=== PATIENT | male | born 1940 | race Caucasian/White ===

== ENCOUNTER 2020-01-06 13:39 | Outpatient (REF) | payer MEDICARE, OTHER, SELFPAY ==
[2020-01-06 16:31] LABS: Alanine Aminotransferase 17 U/L (0-40); Albumin Level 4.3 g/dL (3.5-5.0); Alkaline Phosphatase 115 U/L (39-117); Anion Gap 12 (12-20); Aspartate Amino Transferase 17 U/L (5-37); Bilirubin Total 1.1 mg/dL (0.0-1.0); Blood Urea Nitrogen 27 mg/dL (9-16); Calcium 9.1 mg/dL (8.4-10.2); Carbon Dioxide 27 mmol/L (22-29); Chloride 101 mmol/L (96-108); Cholesterol 104 mg/dL; Estimated Glomerular Filt Rate > 60; Glucose Random 102 mg/dL (60-115); HDL Cholesterol 34 mg/dL; LDL Cholesterol Calculated 53 mg/dl; Magnesium 2.1 mg/dL (1.6-2.6); Potassium 4.3 mmol/l (3.3-5.1); Sodium 136 mmol/L (135-145); Total Protein 7.2 g/dL (6.5-8.0); Triglycerides 89 mg/dL
== END 2020-01-06 13:40 | disposition home or self-care (01) ==
LOC: HO.LAB 13:39
PROVIDERS: PCP Family Medicine; Referring Provider Family Medicine; Visit Provider Nurse Practitioner Family
DX: I47.1 Supraventricular tachycardia (principal); I25.10 Atherosclerotic heart disease of native coronary artery without angina pectoris; I44.7 Left bundle-branch block, unspecified; Z95.5 Presence of coronary angioplasty implant and graft; Z45.02 Encounter for adjustment and management of automatic implantable cardiac defibrillator
CPT/HCPCS: 80053; 80061; 83735; 99212

== ENCOUNTER → 2020-01-08 07:22 | Outpatient (REF) | payer MEDICARE, OTHER, SELFPAY ==
--- NOTE | 2020-01-08 07:46 | CA_ITS ---
Transthoracic Echocardiogram Patient (Last, First, Middle): Angelo Maurer, Gender: Male Date of : 1940 Age: 79 Procedure Date: 01/08/2020 Procedure Type: Transthoracic Echocardiogram Location: OP Height: 177.8 cm Weight: 73.48 kg BSA: 1.91 m2 Heart Rate: bpm BP: 120 / 63 mmHg Booth Usher: LENCHO Referring MD: Maya Walker PEST MANAGEMENT SUPERVISOREthel Symptoms: I25.10 - Atherosclerotic heart disease of [place] coronary artery without angina pectoris Study Quality: Good ECG Rhythm: Sinus Conclusions: - The left ventricular systolic function is mildly decreased. The visually estimated ejection fraction is between 40-45%. The calculated ejection fraction is 42% by biplane method. - No obvious valvular pathology seen on this study. Findings Left Ventricle Normal left ventricular cavity size. There is mildly increased left ventricular wall thickness. The left ventricular systolic function is mildly decreased. The visually estimated ejection fraction is between 40-45%. The calculated ejection fraction is 42% by biplane method. E/E prime ratio is <8, consistent with normal filling pressures. Evidence suggests grade I (mild) diastolic dysfunction. Right Ventricle Normal right ventricular cavity size and systolic function. There is a pacemaker wire seen in the right ventricle. Atria The left atrium is normal in size. The right atrium is normal in size. Aortic Valve There is a normal trileaflet aortic valve. There is mild calcification of the aortic valve. There is no aortic valve stenosis. There is no aortic valve regurgitation. Mitral Valve The mitral valve appears normal. There is trace mitral valve regurgitation. There is no mitral valve stenosis. Pulmonic Valve The pulmonic valve was not well visualized. Tricuspid Valve Normal tricuspid valve structure. There is trace tricuspid valve regurgitation. The pulmonary artery systolic pressure is normal. Great Vessels The aortic annulus, sinuses of valsalva, and asc aorta are normal in size. Venous The inferior vena cava is normal in size and collapses greater than 50% with inspiration. Pericardium/Pleural There is no evidence of pericardial effusion. Prior Study Comparison No significant change compared to prior study dated: 02/05/2019. Recommendations, Care & Conclusions No obvious valvular pathology seen on this study. Measurements 2D Linear Measurements IVSd: 1.41 0.6-0.9/0.6-1.0 cm LVIDd: 4.92 3.9-5.3/4.2-5.9 cm LVIDd Index: 2.58 2.4-3.2/2.2-3.1 cm/m2 LVIDs: 4.14 2.0-3.6 cm LVPWd: 1.14 0.7-1.1 cm Ao Root: 3.00 2.1-3.5 cm LA Diam: 3.40 2.7-3.8/3.0-4.0 cm LAIDs Index: 1.78 1.5-2.3 cm/m2 LV Mass: 309.65 67-162/88-224 g LV Mass Index: 162.12 43-95/49-115 g/m2 LVOT Diam: 2.10 3.0+(-)1.3 cm 2D Systolic Function EF 4C: 55.00 >55% EF 2C: 30.00 >55% EF BiP: 42.20 >55% Mitral Valve MV Pk E: 0.34 MV PK A: 0.68 MV Decel Time: 333.00 E/A: 0.50 E'Lateral: 5.51 E'Medial: 7.16 E/E' Med: 4.80 E/E' Lat: 6.20 PHT: 97.00 MVA PHT: 2.27 Decel [place]: 1.04 Aortic Valve AoV Pk Bertrand: 1.17 AoV Pk Grad: 5.00 LVOT LVOT Pk Bertrand: 0.61 LVOT Mn Bertrand: 0.44 LVOT VTI: 0.12 LVOT Pk Grad: 2.00 LVOT Mn Grad: 1.00 LVOT Diam: 2.10 LVOT Area: 3.46 Diastolic Function MV Pk E: 0.34 MV Pk A: 0.68 E/A: 0.50 E'Medial: 7.16 E/E' Med: 4.80 E' Laterial: 5.51 E/E' Lat: 6.20 Tricuspid Valve TR Pk Bertrand: 1.90 TR Pk Grad: 14.00 RA Press: 3.00 RVSP: 17.00 Great Vessels Aorta Ao Root-2D: 3.00 2.0-3.7 cm Ao Asc: 3.50 2.1-3.4 cm Updated in Other Vendor System with Status of Final Mike Joseph MD electronically signed on 01/10/2020 3:26:08 PM with status of Final
== END ==
LOC: HO.CARD 07:22
PROVIDERS: Visit Provider Nurse Practitioner Family
DX: I25.10 Atherosclerotic heart disease of native coronary artery without angina pectoris (principal)
CPT/HCPCS: 93306

== ENCOUNTER 2020-01-22 13:39 | Outpatient (REF) | payer MEDICARE, OTHER, SELFPAY ==
[2020-01-22 15:09] LABS: Digoxin < 0.3 ng/mL (0.8-2.0)
== END 2020-01-22 13:40 | disposition home or self-care (01) ==
LOC: HO.LAB 13:39
PROVIDERS: Visit Provider Nurse Practitioner Family
DX: I47.1 Supraventricular tachycardia (principal)
CPT/HCPCS: 80162

== ENCOUNTER → 2020-02-03 14:01 | Outpatient (BNVA) | payer MEDICARE, OTHER, SELFPAY | PROVIDERS: Visit Provider Internal Medicine Cardiovascular Disease | DX: Z45.02 Encounter for adjustment and management of automatic implantable cardiac defibrillator (principal); I47.1 Supraventricular tachycardia; I42.9 Cardiomyopathy, unspecified; I25.10 Atherosclerotic heart disease of native coronary artery without angina pectoris | CPT/HCPCS: 99212 ==

== ENCOUNTER → 2020-05-12 12:40 | Outpatient (BNVA) | payer MEDICARE, OTHER, SELFPAY | PROVIDERS: Visit Provider Internal Medicine Cardiovascular Disease | DX: Z45.02 Encounter for adjustment and management of automatic implantable cardiac defibrillator (principal); I42.9 Cardiomyopathy, unspecified; I25.10 Atherosclerotic heart disease of native coronary artery without angina pectoris; Z95.810 Presence of automatic (implantable) cardiac defibrillator | CPT/HCPCS: 99212 ==

== ENCOUNTER → 2020-11-05 08:52 | Outpatient (BNVA) | payer MEDICARE, OTHER, SELFPAY | PROVIDERS: Visit Provider Internal Medicine Cardiovascular Disease | DX: Z45.02 Encounter for adjustment and management of automatic implantable cardiac defibrillator (principal); I42.9 Cardiomyopathy, unspecified; I25.10 Atherosclerotic heart disease of native coronary artery without angina pectoris | CPT/HCPCS: 99212 ==

== ENCOUNTER 2020-11-09 10:00 | Outpatient (REF) | payer MEDICARE, OTHER, SELFPAY ==
[2020-11-09 10:41] LABS: Hematocrit 40.2 % (42-52); Hemoglobin 12.8 g/dl (14.0-18.0); Mean Corpuscular HGB Conc 31.8 g/dl (31.0-36.0); Mean Corpuscular Hemoglobin 32.7 pg (27.0-33.0); Mean Corpuscular Volume 102.6 fL (80-98); Mean Platelet Volume 9.8 fL (9.4-12.4); Platelet Count 211 X10*3/uL (160-400); Red Blood Count 3.92 X10*6/uL (4.60-5.80); Red Cell Distribution Width 14.6 % (11.0-16.0); White Blood Count 11.5 X10*3/uL (4.8-10.8)
[2020-11-09 10:48] LABS: INTERNATIONAL NORM RATIO 1.1 (0.9-1.1); Prothrombin Time 12.7 SEC (9.9-13.0)
[2020-11-09 11:28] LABS: Anion Gap 12 (12-20); Blood Urea Nitrogen 23 mg/dL (9-16); Calcium 8.9 mg/dL (8.4-10.2); Carbon Dioxide 28 mmol/L (22-29); Chloride 108 mmol/L (96-108); Cholesterol 99 mg/dL; Estimated Glomerular Filt Rate > 60; Glucose Random 109 mg/dL (60-115); HDL Cholesterol 30 mg/dL; LDL Cholesterol Calculated 47 mg/dl; Potassium 4.5 mmol/L (3.3-5.1); Sodium 143 mmol/L (135-145); Triglycerides 111 mg/dL
[2020-11-09 14:26] LABS: Digoxin 0.3 ng/mL (0.8-2.0)
== END 2020-11-09 10:01 | disposition home or self-care (01) ==
LOC: HO.LAB 10:00
PROVIDERS: PCP Family Medicine; Visit Provider Internal Medicine Cardiovascular Disease
DX: I25.10 Atherosclerotic heart disease of native coronary artery without angina pectoris (principal); I48.20 Chronic atrial fibrillation, unspecified
CPT/HCPCS: 36415; 80048; 80061; 80162; 85027; 85610

== ENCOUNTER 2020-12-08 13:06 | Day surgery (SDC) | payer MEDICARE, OTHER, SELFPAY ==
[2020-12-02 13:16] VITALS: BMI 23.6
--- NOTE | 2020-12-07 10:22 | P.CONAN_ITS ---
Documented by User: Isabel Boyd NP 12/07/20 10:24 HPI - Anesthesia Eval Consult details Narrative: 80yo M for Pacemaker Generator Change Prednisone daily for PMR Digoxin therapy PMFSH Active Problems Active Problems: All Active Problems (Updated 12/02/20 @ 13:16 by Magaly Palomares RN) SVT (supraventricular tachycardia) (Acute) LBBB (left bundle branch block) (Acute) Biventricular ICD (implantable cardioverter-defibrillator) in place (Acute) Cardiomyopathy (Acute) CAD (coronary artery disease) (Acute) Past Medical History Medical History (Updated 12/02/20 @ 13:16 by Magaly Palomares RN) Arthritis Biventricular ICD (implantable cardioverter-defibrillator) in place CAD (coronary artery disease) Cardiomyopathy COVID-19 vaccine series completed Elevated cholesterol Gout LBBB (left bundle branch block) Polymyalgia rheumatica Family History Family History Father CVD (cardiovascular disease) Mother No problems noted. Surgical History Surgical History (Updated 12/02/20 @ 12:50 by Magaly Palomares RN) H/O colonoscopy Stented coronary artery Social History Social History Are you a primary senior care specialist to a significant other at home: No Do you presently have visiting nurse or other home services: No Patient Tobacco Use Status: Never used Tobacco Use of substances other than those prescribed or required for medical reasons: No Have you been hit, kicked, punched, or otherwise hurt by someone within the past year? If so, by whom?: No Are you DNR?: No Advance Directives Information Provided: Yes (will bring copy of HCP form DOS) Advance Directives on File: No Recently lost weight without trying: No Eating poorly because of decreased appetite: No Nutrition Risks: Surgical patient >75years Poor oral hygiene: No Meds Allergies Allergy/AdvReac Type Severity Reaction Status Date / Time bee pollen [BEE STINGS] Allergy Severe Anaphylaxis Verified 12/08/20 13:14 Home Medications Medication Instructions Recorded Confirmed Last Taken Type allopurinol 100 mg tablet 200 mg PO DAILY 01/06/20 12/02/20 Unknown History aspirin 81 mg tablet,delayed 81 mg PO DAILY 01/06/20 12/08/2021 10:00 History release (Adult Low Dose Aspirin) prednisone 1 mg tablet 2 mg PO DAILY tab 05/12/20 12/08/20 12/08/20 06:00 History 1 mg indomethacin 25 mg capsule 25 mg PO TID 12/02/20 12/02/20 Unknown History Exam Exam Date and Time: December 07, 2020 1022 Height,Weight and Vital Signs: Height 5 ft 10 in Weight 74.6 kg Pertinent Lab Results Pertinent Lab Results: Laboratory Tests 11/09/20 11/09/20 10:18 10:18 WBC 11.5 H Hgb 12.8 L Hct 40.2 L Plt Count 211 Sodium 143 Potassium 4.5 Chloride 108 Carbon Dioxide 28 BUN 23 H Creatinine 1.01 Laboratory Tests 11/09/20 11/09/20 10:18 10:18 PT 12.7 INR 1.1 Digoxin 0.3 L Narrative Narrative: Cardiac Device Check 10/2020 Details: Biventricular [place] ICD in place.? Programmed in DDDR at 60 beats per minute.? Battery has reached ZULEYMA.? Atrial ventricular sensing is excellent.? Pacing and shock lead impedance is stable.? Capture thresholds are not performed ECHO 12/2019 Conclusions: - The left ventricular systolic function is mildly decreased.? ? The visually estimated ejection fraction is between 40-45%.? The calculated ejection fraction is 42% by biplane method. ? - No obvious valvular pathology seen on this study.? Assessment and Plan Assessment Anesthesia Assessment: Chart Reviewed Documented by User: Shane Lerma MD 12/08/20 14:25 [facility] Past Medical History Medical History (Updated 12/02/20 @ 13:16 by Magaly Palomares RN) Arthritis Biventricular ICD (implantable cardioverter-defibrillator) in place CAD (coronary artery disease) Cardiomyopathy COVID-19 vaccine series completed Elevated cholesterol Gout LBBB (left bundle branch block) Polymyalgia rheumatica Family History Family History Father CVD (cardiovascular disease) Mother No problems noted. Family history of problems with anesthesia: No Surgical History Surgical History (Updated 12/02/20 @ 12:50 by Magaly Palomares RN) H/O colonoscopy Stented coronary artery History of Problems with Anesthesia: No Social History Social History Are you a primary senior care specialist to a significant other at home: No Do you presently have visiting nurse or other home services: No Patient Tobacco Use Status: Never used Tobacco Use of substances other than those prescribed or required for medical reasons: No Have you been hit, kicked, punched, or otherwise hurt by someone within the past year? If so, by whom?: No Are you DNR?: No Advance Directives Information Provided: Yes (will bring copy of HCP form DOS) Advance Directives on File: No Recently lost weight without trying: No Eating poorly because of decreased appetite: No Nutrition Risks: Surgical patient >75years Poor oral hygiene: No Meds Allergies Allergy/AdvReac Type Severity Reaction Status Date / Time bee pollen [BEE STINGS] Allergy Severe Anaphylaxis Verified 12/08/20 13:14 Home Medications Medication Instructions Recorded Confirmed Last Taken Type allopurinol 100 mg tablet 200 mg PO DAILY 01/06/20 12/02/20 Unknown History aspirin 81 mg tablet,delayed 81 mg PO DAILY 01/06/20 12/08/20 12/07/20 10:00 History release (Adult Low Dose Aspirin) prednisone 1 mg tablet 2 mg PO DAILY tab 05/12/20 12/08/20 12/08/20 06:00 History 1 mg indomethacin 25 mg capsule 25 mg PO TID 12/02/20 12/02/20 Unknown History Exam Airway Mallampati Class: II TM Dist: >3cm Neck ROM: Full Loose/Missing/Broken Teeth: Yes Heart: [id number] Lungs: cta b/l Assessment and Plan Assessment Anesthesia Assessment: Anesthesia Plan Discussed Final Anesthetic Review Family History of Problems with Anesthesia: No History of Problems with Anesthesia: No NPO: Yes ASA Class: III Final Preanesthetic Review: No Changes in Pt Med Stat, Meds/Allgs Chart Reviewed, Consent Obtained/Reviewed and Anes Risks/Benef Reviewed Patient Risk: Intermediate Procedure Risk: Intermediate Assessment/Block/Sedation in SS: Assess/Block/Sedation-SS Anesthetic Plan Anesthetic Plan: MAC: and Agree w/ Assess. and Plan Disposition: Standard PACU
[2020-12-08 13:20] VITALS: BP 113/70; PULSE 73; RESP 16; TEMP 36.3; O2SAT 96
[2020-12-08] MEDS: 0.9 % Sodium Chloride 1,000 ML 10 ML IVCONT (14:37)
--- NOTE | 2020-12-08 15:59 | PM.HPCAR ---
History of Present Illness History of Present Illness Date of Service: 12/08/20 Chief complaint: cardiomyopathy Narrative: Angelo Maurer is a 80 year old male with CAD, ischemic cardiomyopathy, and LBBB s/p [employer] [place] BiV ICD. Presents for generator replacement at [facility] Review of Systems Review of Systems: Yes all other systems are reviewed and are negative, unobtainable due to endotracheal tube, Unobtainable due to mental condition, Unobtainable due to mental status and Other PMFSH Past Medical History Medical History Arthritis Biventricular ICD (implantable cardioverter-defibrillator) in place CAD (coronary artery disease) Cardiomyopathy COVID-19 vaccine series completed Elevated cholesterol Gout LBBB (left bundle branch block) Polymyalgia rheumatica Family History Family History Father CVD (cardiovascular disease) Mother No problems noted. Surgical History Surgical History H/O colonoscopy Stented coronary artery Social History Social History Are you a primary career development counselor to a significant other at home: No Do you presently have visiting nurse or other home services: No Patient Tobacco Use Status: Never used Tobacco Use of substances other than those prescribed or required for medical reasons: No Have you been hit, kicked, punched, or otherwise hurt by someone within the past year? If so, by whom?: No Are you DNR?: No Advance Directives Information Provided: Yes (will bring copy of HCP form DOS) Advance Directives on File: No Recently lost weight without trying: No Eating poorly because of decreased appetite: No Nutrition Risks: Surgical patient >75years Poor oral hygiene: No Meds Allergies Allergy/AdvReac Type Severity Reaction Status Date / Time bee pollen [BEE STINGS] Allergy Severe Anaphylaxis Verified 12/08/20 13:14 Active Medications: Current Medications Sodium Chloride (Ns) 1,000 mls @ 0 mls/hr IVCONT .Q0M PHILLIP Last Admin: 12/08/20 14:37 Dose: 10 mls/hr Documented by: Home Medications Medication Instructions Recorded Confirmed Last Taken Type allopurinol 100 mg tablet 200 mg PO DAILY 11/16/20 10/13/21 Unknown History aspirin 81 mg tablet,delayed 81 mg PO DAILY 01/06/20 12/08/20 12/07/20 10:00 History release (Adult Low Dose Aspirin) prednisone 1 mg tablet 2 mg PO DAILY tab 05/12/20 12/08/20 12/08/20 06:00 History 1 mg indomethacin 25 mg capsule 25 mg PO TID 12/02/20 12/02/20 Unknown History Physical Exam Vital Signs: Vital Signs: Last Vital Signs Temp 97.3 F 12/08/20 13:20 Pulse 73 12/08/20 13:20 Resp 16 12/08/20 13:20 BP 113/70 12/08/20 13:20 Pulse Ox 96 12/08/20 13:20 Body Mass Index 23.6 Chest: Chest palpation & inspection: normal inspection of the chest Cardio: Jugular venous distension: no JVD Rate: regular rate GI: Palpation (GI): Soft to palpation Extrem: General: Yes no pedal edema Right upper extremity: normal to inspection Assessment and Plan (1) LBBB (left bundle branch block): Status: Acute (2) Biventricular ICD (implantable cardioverter-defibrillator) in place: Status: Acute (3) Cardiomyopathy: Status: Acute (4) CAD (coronary artery disease): Status: Acute Generator change. Risks, benefits and alternatives discussed including bleeding nad infection. Questions encouraged and answered. Consent obtained. Quality Stroke Does the patient have a stroke diagnosis?: No VTE Prior VTE?: No VTE Risk Level:: Medical - low VTE Device Contraindication: Treatment Not Indicated VTE Drug Contraindication: Treatment Not Indicated Procedures Date of Service Date of Service: 12/08/20
[2020-12-08 17:17] VITALS: BP 136/55; PULSE 64; RESP 18; TEMP 36.2; O2SAT 94
--- NOTE | 2020-12-08 17:19 | W.PM.OPN ---
Operative Note Operative Note Date of Service: 12/08/20 Narrative: Generator Change Procedure Date: 12/08/20 Pre-Operative Diagnosis: LBBB, ICM, ZULEYMA Post-Operative Diagnosis: Generator Change Procedure: NURSE STAFF-D Generator Removal NURSE STAFF-D Generator Implantation Defibrillator/Lead testing Device Pocket Revision Mail Processing Associate: Sherri Liao M.D. Social Media Sr Strategy Manager: None Anesthesia: MAC Drains: None Estimated Blood Loss: Minimal Complications: None Indications: ZULEYMA Specimen removed: None Additional Studies ordered: None Procedure: Informed consent was obtained. The patient was brought to the EP lab in the fasting state. Perioperative antibiotics were given with cefazolin. He received conscious sedation via the anesthesia service. He was prepped and draped in the usual sterile fashion. After subcutaneous infiltration with lidocaine, a #15 scalpel was used to make a 1.5 incision overlying the original incision. This was dissected down to the defibrillator pocket using blunt dissection. The defibrillator was isolated and delivered from the pocket without difficulty. It was disconnected from the leads, which were tested visually and electronically and found to be stable. The pocket was revised/refashioned to allow a better fit for the device. The pocket was copiously irrigated with antibiotic solution. The new device was brought to the field and carefully connected to the leads. Appropriate NURSE STAFF-D function was noted. The entire assembly was inserted into the pocket, which was closed in 3 layers, using 2-0, 3-0 polysorb and 4-0 v loc. Steri-strips and a sterile dressing were applied and the patient returned to the recovery room in good condition. Results Generator: NURSE STAFF-D [place] HF [id number] A Lead: As 3.4mV, Ap 0.62 V @ 0.5ms, 410 ohms RV Lead: Vs 4.1mV, Composition Stone Applicator 1.50 V @ 0.5ms, 440 ohms LV Lead: Composition Stone Applicator 2.12V @ 1ms, 890 ohms Final Settings: DDD/60/120 VT 150bpm monitor VT2 > 181bpm: ATP x 3 25J, 36 J, 40J x 2 VF > 214bpm: ATP x 1, 36J, 40J x 5 Conclusion: Successful NURSE STAFF-D generator change Plan: - No repetitive motion or lifting heavy weight for 3-4 weeks - No driving, alcohol or making legal decisions for 24 hours. - Keep wound completely dry for 7 days; no showers. - No soaking in hot tubs or baths for 10 days. May sponge bath - Remove band-aid/tegaderm in 2 days; allow steristrips underneath to fall off naturally. ? - Please call our office if you notice any discharge or swelling around incision or fever. - Follow-up with Dr. Crawford?within 2 weeks for a wound check or as scheduled. - For cardiology electrophysiology emergencies (such as severe heart racing, bleeding, severe wound pain/swelling, high fever, wound discharge, stroke symptoms, or recent severe chest pain) call: cardiology and ambulance ([phone]) to come straight to the nearest emergency department.
--- NOTE | 2020-12-08 17:20 | PC.NURSE ---
DEVICE REP MEETING WITH FAMILY TO REVIEW PLAN OF CARE.
[2020-12-08 17:32] VITALS: BP 109/52; PULSE 61; RESP 18; TEMP 36.2; O2SAT 96
[2020-12-08 17:47] VITALS: BP 121/74; PULSE 63; RESP 18; O2SAT 97
== END 2020-12-08 17:50 | disposition home or self-care (01) ==
PROVIDERS: PCP Family Medicine; Visit Provider Internal Medicine Clinical Cardiac Electrophysiology
PROC: (CPT 33264; principal; 2020-12-08 14:30)
DX: Z45.02 Encounter for adjustment and management of automatic implantable cardiac defibrillator (principal); I42.8 Other cardiomyopathies; I44.7 Left bundle-branch block, unspecified; I25.10 Atherosclerotic heart disease of native coronary artery without angina pectoris; Z98.61 Coronary angioplasty status; Z79.899 Other long term (current) drug therapy
CPT/HCPCS: 33264; 99218; C1882; C2619; J0690; J2370; J3370

== ENCOUNTER → 2020-12-22 13:33 | Outpatient (BNVA) | payer MEDICARE, OTHER, SELFPAY | PROVIDERS: PCP Family Medicine; Visit Provider Nurse Practitioner Family | DX: Z51.89 Encounter for other specified aftercare (principal); I47.1 Supraventricular tachycardia; I25.10 Atherosclerotic heart disease of native coronary artery without angina pectoris; I42.9 Cardiomyopathy, unspecified; Z95.810 Presence of automatic (implantable) cardiac defibrillator | CPT/HCPCS: 99212 ==

== ENCOUNTER → 2021-01-05 10:55 | Outpatient (BNVA) | payer MEDICARE, OTHER, SELFPAY | PROVIDERS: Visit Provider Internal Medicine Cardiovascular Disease | DX: Z45.02 Encounter for adjustment and management of automatic implantable cardiac defibrillator (principal); I42.9 Cardiomyopathy, unspecified; I25.10 Atherosclerotic heart disease of native coronary artery without angina pectoris | CPT/HCPCS: 99212 ==

== ENCOUNTER → 2021-02-15 09:36 | Outpatient (REF) | payer MEDICARE, OTHER, SELFPAY ==
--- NOTE | 2021-02-15 09:48 | CA_ITS ---
Transthoracic Echocardiogram Patient (Last, First, Middle): Angelo Maurer, Gender: Male Date of : 1940 Age: 80 Procedure Date: 02/15/2021 Procedure Type: Transthoracic Echocardiogram Location: OP Height: 177.8 cm Weight: 74.39 kg BSA: 1.92 m2 Heart Rate: bpm BP: 118 / 60 mmHg Envelope Sealing Machine Operator: Referring MD: Pacheco Crawford MD Symptoms: I42.9 - Cardiomyopathy, unspecified Study Quality: Good ECG Rhythm: Ventriculary paced rhythm Conclusions: - The left ventricular systolic function is mildly decreased. The visually estimated ejection fraction is between 40-45%. - There is mild calcification of the aortic valve. Findings Left Ventricle Normal left ventricular cavity size. There is mildly increased left ventricular wall thickness. The left ventricular systolic function is mildly decreased. The visually estimated ejection fraction is between 40-45%. E/E prime ratio is <8, consistent with normal filling pressures. Evidence suggests grade I (mild) diastolic dysfunction. Right Ventricle Normal right ventricular cavity size and systolic function. There is an ICD wire seen in the right ventricle. Atria Both atria are normal in size. Aortic Valve There is a normal trileaflet aortic valve. There is mild calcification of the aortic valve. There is no aortic valve stenosis. There is no aortic valve regurgitation. Mitral Valve The mitral valve appears normal. There is trace mitral valve regurgitation. There is no mitral valve stenosis. Pulmonic Valve The pulmonic valve was not well visualized. Tricuspid Valve There is trace tricuspid valve regurgitation. The pulmonary artery systolic pressure is normal. Great Vessels The aortic annulus and asc aorta are normal in size. Venous The inferior vena cava is normal in size and collapses greater than 50% with inspiration. Pericardium/Pleural There is no evidence of pericardial effusion. Prior Study Comparison No significant change compared to prior study dated: 01/08/2020. Measurements 2D Linear Measurements IVSd: 1.10 0.6-0.9/0.6-1.0 cm LVIDd: 3.99 3.9-5.3/4.2-5.9 cm LVIDd Index: 2.08 2.4-3.2/2.2-3.1 cm/m2 LVIDs: 2.44 2.0-3.6 cm LVPWd: 1.08 0.7-1.1 cm Ao Root: 3.30 2.1-3.5 cm LA Diam: 3.90 2.7-3.8/3.0-4.0 cm LAIDs Index: 2.03 1.5-2.3 cm/m2 LV Mass: 178.22 67-162/88-224 g LV Mass Index: 92.82 43-95/49-115 g/m2 LVOT Diam: 2.20 3.0+(-)1.3 cm 2D Systolic Function EF 4C: 44.00 >55% EF 2C: 52.50 >55% EF BiP: 49.00 >55% Mitral Valve MV Pk E: 0.40 MV PK A: 0.72 MV Decel Time: 196.00 E/A: 0.60 E'Lateral: 8.49 E'Medial: 5.87 E/E' Med: 6.90 E/E' Lat: 4.70 PHT: 58.00 MVA PHT: 3.79 Decel [place]: 2.05 Aortic Valve AoV Pk Bertrand: 1.16 AoV Mn Bertrand: 0.78 AoV VTI: 0.25 AoV Pk Grad: 5.00 Aov Mn Grad: 3.00 LINDA Cont.VTI: 2.17 LVOT LVOT Pk Bertrand: 0.68 LVOT Mn Bertrand: 0.40 LVOT VTI: 0.14 LVOT Pk Grad: 2.00 LVOT Mn Grad: 1.00 LVOT Diam: 2.20 LVOT Area: 3.80 Diastolic Function MV Pk E: 0.40 MV Pk A: 0.72 E/A: 0.60 E'Medial: 5.87 E/E' Med: 6.90 E' Laterial: 8.49 E/E' Lat: 4.70 Right Ventricle TAPSE (mm): 22.00 Tricuspid Valve TR Pk Bertrand: 2.22 TR Pk Grad: 20.00 RA Press: 3.00 RVSP: 23.00 Great Vessels Aorta Ao Root-2D: 3.30 2.0-3.7 cm Ao Asc: 3.50 2.1-3.4 cm Pulmonary Valve PV Pk Bertrand: 1.10 Peak PV Grad: 5.00 Updated in Other Vendor System with Status of Final Mike Joseph MD electronically signed on 02/15/2021 4:05:10 PM with status of Final
== END ==
LOC: HO.CARD 09:36
PROVIDERS: Visit Provider Internal Medicine Cardiovascular Disease
DX: I42.9 Cardiomyopathy, unspecified (principal)
CPT/HCPCS: 93306

== ENCOUNTER → 2021-02-22 13:30 | Outpatient (BNVA) | payer MEDICARE, OTHER, SELFPAY | PROVIDERS: Visit Provider Internal Medicine Cardiovascular Disease ==

== ENCOUNTER → 2021-04-28 09:57 | Outpatient (BNVA) | payer MEDICARE, OTHER, SELFPAY | PROVIDERS: Visit Provider Nurse Practitioner Family | DX: Z13.89 Encounter for screening for other disorder (principal) ==

== ENCOUNTER → 2021-07-22 12:50 | Outpatient (BNVA) | payer MEDICARE, OTHER, SELFPAY | PROVIDERS: Referring Provider Physician Assistant; Visit Provider Internal Medicine Cardiovascular Disease | DX: I42.9 Cardiomyopathy, unspecified (principal); I25.10 Atherosclerotic heart disease of native coronary artery without angina pectoris; I47.1 Supraventricular tachycardia; Z79.82 Long term (current) use of aspirin; Z79.899 Other long term (current) drug therapy; Z95.810 Presence of automatic (implantable) cardiac defibrillator | CPT/HCPCS: 99212 ==

== ENCOUNTER → 2021-11-30 08:58 | Outpatient (BNVA) | payer MEDICARE, OTHER, SELFPAY | PROVIDERS: PCP Internal Medicine; Visit Provider Internal Medicine Rheumatology | DX: M17.12 Unilateral primary osteoarthritis, left knee (principal); M35.3 Polymyalgia rheumatica; M10.9 Gout, unspecified | CPT/HCPCS: 99212 ==

== ENCOUNTER → 2022-01-21 08:16 | Outpatient (REF) | payer MEDICARE, OTHER, SELFPAY ==
--- NOTE | 2022-01-21 08:18 | CA_ITS ---
Transthoracic Echocardiogram Patient (Last, First, Middle): Angelo Maurer, Gender: Male Date of : 1940 Age: 81 Procedure Date: 01/21/2022 Procedure Type: Transthoracic Echocardiogram Location: OP Height: 177.8 cm Weight: 73.94 kg BSA: 1.91 m2 Heart Rate: 60 bpm BP: 105 / 60 mmHg Sole Leveling Machine Operator: HAO Referring MD: Pacheco Crawford MD Symptoms: I42.9 - Cardiomyopathy, unspecified Study Quality: Adequate ECG Rhythm: Ventriculary paced rhythm Conclusions: - The left ventricular systolic function is borderline reduced. The visually estimated ejection fraction is between 45-50%. - The basal inferior and mid inferior segments are hypokinetic. - Normal right ventricular cavity size. There is borderline right ventricular systolic function. There is a pacemaker wire seen in the right ventricle. 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 Findings Left Ventricle Normal left ventricular cavity size. There is normal left ventricular wall thickness. The left ventricular systolic function is borderline reduced. The visually estimated ejection fraction is between 45-50%. There is evidence of regional wall motion abnormalities. Diastolic function is indeterminate on the basis of available data. Wall Motion Rest Echo Findings The basal inferior and mid inferior segments are hypokinetic. Right Ventricle Normal right ventricular cavity size. There is borderline right ventricular systolic function. There is a pacemaker wire seen in the right ventricle. Atria The left atrium is normal in size. The right atrium is normal in size. Aortic Valve There is a normal trileaflet aortic valve. There is no aortic valve stenosis. There is no aortic valve regurgitation. Mitral Valve The mitral valve appears normal. There is no mitral valve regurgitation. There is no mitral valve stenosis. Pulmonic Valve The pulmonic valve is likely normal. Tricuspid Valve Normal tricuspid valve structure. There is no tricuspid valve regurgitation. Tricuspid regurgitation envelope is inadequate for calculation of right ventricular systolic pressure. Normal right atrial pressure. Great Vessels There is mild dilatation of the ascending aorta measuring 4.00 cm. The visualized portions of the pulmonary artery and branches are normal. Venous The inferior vena cava is normal in size and collapses greater than 50% with inspiration. Pericardium/Pleural There is no evidence of pericardial effusion. Prior Study Comparison Changes noted compared to prior study dated: 02/15/2021. EF 45-50%, basal to mid inferior wall hypokinesis. Mild dilation of aorta 4 cm. Measurements 2D Linear Measurements IVSd: 1.00 0.6-0.9/0.6-1.0 cm LVIDd: 5.22 3.9-5.3/4.2-5.9 cm LVIDd Index: 2.73 2.4-3.2/2.2-3.1 cm/m2 LVIDs: 3.66 2.0-3.6 cm LVPWd: 0.82 0.7-1.1 cm LA Diam: 3.70 2.7-3.8/3.0-4.0 cm LAIDs Index: 1.94 1.5-2.3 cm/m2 LV Mass: 215.10 67-162/88-224 g LV Mass Index: 112.62 43-95/49-115 g/m2 LVOT Diam: 2.20 3.0+(-)1.3 cm 2D Systolic Function EF 4C: 48.20 >55% EF 2C: 54.40 >55% EF BiP: 51.80 >55% Mitral Valve MV Pk E: 0.48 MV PK A: 0.77 MV Decel Time: 416.00 E/A: 0.60 E'Lateral: 5.73 E'Medial: 5.17 E/E' Med: 9.20 E/E' Lat: 8.30 PHT: 122.00 MVA PHT: 1.80 Decel [place]: 1.15 Aortic Valve AoV Pk Bertrand: 1.13 AoV Mn Bertrand: 0.79 AoV VTI: 0.24 AoV Pk Grad: 5.00 Aov Mn Grad: 3.00 LINDA Cont.VTI: 2.54 LVOT LVOT Pk Bertrand: 0.80 LVOT Mn Bertrand: 0.56 LVOT VTI: 0.16 LVOT Pk Grad: 3.00 LVOT Mn Grad: 1.00 LVOT Diam: 2.20 LVOT Area: 3.80 Diastolic Function MV Pk E: 0.48 MV Pk A: 0.77 E/A: 0.60 E'Medial: 5.17 E/E' Med: 9.20 E' Laterial: 5.73 E/E' Lat: 8.30 Right Ventricle TAPSE (mm): 21.70 TVS' Bertrand: 11.90 Tricuspid Valve RA Press: 3.00 Great Vessels Aorta Sinus of Valsalva: 3.80 2.0-3.5 cm Ao Asc: 4.00 2.1-3.4 cm Pulmonary Valve PV Pk Bertrand: 0.62 Peak PV Grad: 2.00 Updated in Other Vendor System with Status of Final Dru Sarah MD electronically signed on 01/23/2022 7:52:19 PM with status of Final
== END ==
LOC: HO.CARD 08:16
PROVIDERS: Visit Provider Internal Medicine Cardiovascular Disease
DX: I42.9 Cardiomyopathy, unspecified (principal)
CPT/HCPCS: 93306

== ENCOUNTER → 2022-01-25 12:41 | Outpatient (BNVA) | payer MEDICARE, OTHER, SELFPAY | PROVIDERS: Visit Provider Internal Medicine Cardiovascular Disease | DX: Z45.02 Encounter for adjustment and management of automatic implantable cardiac defibrillator (principal); I42.9 Cardiomyopathy, unspecified; I25.10 Atherosclerotic heart disease of native coronary artery without angina pectoris; I47.1 Supraventricular tachycardia | CPT/HCPCS: 93005; 99212 ==

== ENCOUNTER 2022-01-31 12:30 | Outpatient (REF) | payer MEDICARE, OTHER, SELFPAY ==
[2022-01-31 14:35] LABS: Erythrocyte Sedimentation Rate 8 MM/HR (0-15)
[2022-01-31 14:40] LABS: Digoxin 0.4 ng/mL (0.8-2.0)
[2022-01-31 14:41] LABS: Anion Gap 11 (12-20); Blood Urea Nitrogen 22 mg/dL (9-16); Calcium 9.3 mg/dL (8.4-10.2); Carbon Dioxide 29 mmol/L (22-29); Chloride 103 mmol/L (96-108); Cholesterol 107 mg/dL; Estimated Glomerular Filt Rate > 60; Glucose Random 78 mg/dL (60-115); HDL Cholesterol 34 mg/dL; LDL Cholesterol Calculated 47 mg/dl; Potassium 4.2 mmol/L (3.3-5.1); Sodium 139 mmol/L (135-145); Triglycerides 130 mg/dL
== END 2022-01-31 12:31 | disposition home or self-care (01) ==
LOC: HO.LAB 12:30
PROVIDERS: Internal Medicine Rheumatology; Visit Provider Internal Medicine Cardiovascular Disease
DX: M10.9 Gout, unspecified (principal); M35.3 Polymyalgia rheumatica; I25.10 Atherosclerotic heart disease of native coronary artery without angina pectoris; I42.9 Cardiomyopathy, unspecified; I48.20 Chronic atrial fibrillation, unspecified; Z79.899 Other long term (current) drug therapy
CPT/HCPCS: 36415; 80048; 80061; 80162; 85652; 86140

== ENCOUNTER → 2022-05-31 09:59 | Outpatient (BNVA) | payer MEDICARE, OTHER, SELFPAY | PROVIDERS: PCP Internal Medicine; Visit Provider Internal Medicine Rheumatology | DX: M10.9 Gout, unspecified (principal); M17.12 Unilateral primary osteoarthritis, left knee; M35.3 Polymyalgia rheumatica | CPT/HCPCS: 99212 ==

== ENCOUNTER → 2022-07-25 09:02 | Outpatient (BNVA) | payer MEDICARE, OTHER, SELFPAY | PROVIDERS: PCP Internal Medicine; Referring Provider Internal Medicine; Visit Provider Internal Medicine Cardiovascular Disease | DX: Z45.02 Encounter for adjustment and management of automatic implantable cardiac defibrillator (principal); I42.9 Cardiomyopathy, unspecified; I25.10 Atherosclerotic heart disease of native coronary artery without angina pectoris | CPT/HCPCS: 99212 ==

== ENCOUNTER → 2022-09-05 23:59 | Outpatient (BNV) | payer MEDICARE, OTHER, SELFPAY ==
--- NOTE | 2022-09-08 09:27 | MHC.OFFVIS ---
Intake Intake Visit Reasons: Remote HF Monitoring- [facility] Allergies bee pollen [BEE STINGS] Allergy (Severe, Verified 05/31/22 10:09) Anaphylaxis PFSH Medical History Arthritis Biventricular ICD (implantable cardioverter-defibrillator) in place CAD (coronary artery disease) Cardiomyopathy COVID-19 vaccine series completed Elevated cholesterol Gout LBBB (left bundle branch block) Polymyalgia rheumatica Surgical History H/O colonoscopy Stented coronary artery Family History Father CVD (cardiovascular disease) Heart attack Mother Cancer Maternal Grandfather Heart attack Social History Are you a primary patient care nursing assistant to a significant other at home: No Do you presently have visiting nurse or other home services: No Patient Tobacco Use Status: Never used Tobacco Office Procedures Cardiac Device Check Cardiac Device Check Details: Remote heart failure report generated 09/05/2022. Heart failure parameters are stable 55054-Fybkop Cardiac Device Interrogation, cardio physiologic monitor Procedure code (CPT) selection complete Coding Level of Care Code Procedure Only Diagnoses CPT Codes Cardiac Device Check - Cardiac Device 15: [id number]-[id number] Cardiac Device Interrogation, cardio physiologic monitor ([id number])
== END ==
PROVIDERS: PCP Internal Medicine; Visit Provider Internal Medicine Cardiovascular Disease
DX: I42.9 Cardiomyopathy, unspecified (principal); Z95.810 Presence of automatic (implantable) cardiac defibrillator
CPT/HCPCS: 93297

== ENCOUNTER → 2022-10-11 23:59 | Outpatient (BNV) | payer MEDICARE, OTHER, SELFPAY ==
--- NOTE | 2022-10-11 15:43 | A.OFFVIS_ITS ---
Intake Intake Visit Reasons: REMote HF monitoring- [facility] Allergies bee pollen [BEE STINGS] Allergy (Severe, Verified 05/31/22 10:09) Anaphylaxis PFSH Medical History Arthritis Biventricular ICD (implantable cardioverter-defibrillator) in place CAD (coronary artery disease) Cardiomyopathy COVID-19 vaccine series completed Elevated cholesterol Gout LBBB (left bundle branch block) Polymyalgia rheumatica Surgical History H/O colonoscopy Stented coronary artery Family History Father CVD (cardiovascular disease) Heart attack Mother Cancer Maternal Grandfather Heart attack Social History Are you a primary healthcare representative to a significant other at home: No Do you presently have visiting nurse or other home services: No Patient Tobacco Use Status: Never used Tobacco Office Procedures Cardiac Device Check Cardiac Device Check Details: Remote heart failure report generated 10/11/2022. Heart failure parameters are stable 32465-[id number] Cardiac Device Interrogation, cardio physiologic monitor Procedure code (CPT) selection complete Coding Level of Care Code Procedure Only Diagnoses CPT Codes Cardiac Device Check - Cardiac Device 15: [id number] Cardiac Device Interrogation, cardio physiologic monitor ([id number])
== END ==
PROVIDERS: PCP Internal Medicine; Visit Provider Internal Medicine Cardiovascular Disease
DX: I42.9 Cardiomyopathy, unspecified (principal); Z95.810 Presence of automatic (implantable) cardiac defibrillator
CPT/HCPCS: 93297

== ENCOUNTER → 2022-10-24 23:59 | Outpatient (BNV) | payer MEDICARE, OTHER, SELFPAY ==
--- NOTE | 2022-10-25 10:51 | MHC.OFFVIS ---
Intake Intake Visit Reasons: Remote ICD Check- [facility] Allergies bee pollen [BEE STINGS] Allergy (Severe, Verified 05/31/22 10:09) Anaphylaxis PFSH Medical History Arthritis Biventricular ICD (implantable cardioverter-defibrillator) in place CAD (coronary artery disease) Cardiomyopathy COVID-19 vaccine series completed Elevated cholesterol Gout LBBB (left bundle branch block) Polymyalgia rheumatica Surgical History H/O colonoscopy Stented coronary artery Family History Father CVD (cardiovascular disease) Heart attack Mother Cancer Maternal Grandfather Heart attack Social History Are you a primary in home caregiver to a significant other at home: No Do you presently have visiting nurse or other home services: No Patient Tobacco Use Status: Never used Tobacco Office Procedures Cardiac Device Check Cardiac Device Check Details: Remote ICD report generated 10/24/2022. Bi V pacing 97% of time. Few episodes of nonsustained VT noted. ICD function is adequate overall 18970-[id number] Cardiac Interrogation, implant defibrillator w/interim Procedure code (CPT) selection complete Coding Level of Care Code Procedure Only Diagnoses CPT Codes Cardiac Device Check - Cardiac Device 13: [id number] Cardiac Interrogation, implant defibrillator w/interim ([id number])
== END ==
PROVIDERS: PCP Internal Medicine; Visit Provider Internal Medicine Cardiovascular Disease
DX: I42.9 Cardiomyopathy, unspecified (principal); Z95.810 Presence of automatic (implantable) cardiac defibrillator
CPT/HCPCS: 93295

== ENCOUNTER → 2022-11-14 23:59 | Outpatient (BNV) | payer MEDICARE, OTHER, SELFPAY ==
--- NOTE | 2022-11-14 15:32 | A.OFFVIS_ITS ---
Intake Intake Visit Reasons: Remote HF monitoring- [facility] Allergies bee pollen [BEE STINGS] Allergy (Severe, Verified 05/31/22 10:09) Anaphylaxis PFSH Medical History Arthritis Biventricular ICD (implantable cardioverter-defibrillator) in place CAD (coronary artery disease) Cardiomyopathy COVID-19 vaccine series completed Elevated cholesterol Gout LBBB (left bundle branch block) Polymyalgia rheumatica Surgical History H/O colonoscopy Stented coronary artery Family History Father CVD (cardiovascular disease) Heart attack Mother Cancer Maternal Grandfather Heart attack Social History Are you a primary director of medicare to a significant other at home: No Do you presently have visiting nurse or other home services: No Patient Tobacco Use Status: Never used Tobacco Office Procedures Cardiac Device Check Cardiac Device Check Details: Remote heart failure report generated 11/14/2022. Heart failure parameters are stable 46494-Rlatyk Cardiac Device Interrogation, cardio physiologic monitor Procedure code (CPT) selection complete Coding Level of Care Code Procedure Only CPT Codes Cardiac Device Check - Cardiac Device 15: [id number] Cardiac Device Interrogation, cardio physiologic monitor ([id number])
== END ==
PROVIDERS: PCP Internal Medicine; Visit Provider Internal Medicine Cardiovascular Disease
DX: I42.9 Cardiomyopathy, unspecified (principal); Z95.810 Presence of automatic (implantable) cardiac defibrillator
CPT/HCPCS: 93297

== ENCOUNTER 2022-11-17 10:48 | Outpatient (AMB) | payer MEDICARE, OTHER, SELFPAY ==
--- NOTE | 2022-11-17 10:50 | A.OFFVIS_ITS ---
Intake Vital Signs 11/17/22 11:07 Height 5 ft 10 in Weight 162 lb 11.218 oz BMI 23.3 BP 100/62 Blood Pressure Location Lt brachial Position Sitting Pulse 76 Pulse Source Pulse Oximeter Temp 97.2 F Temp Source Skin Pulse Oximetry (%) 96 Oxygen Delivery Method Room Air Intake Visit Reasons: pmr/oa Intake Note: Patient presents today for PMR and OA follow up. Police Captain Required: No Accompanied by: Self / Same As Patient Allergies bee pollen [BEE STINGS] Allergy (Severe, Verified 11/17/22 11:08) Anaphylaxis HPI HPI Comments History of Present Illness Details The patient returns for evaluation of his PMR, gout and osteoarthritis. He remains at 2 mg daily prednisone. He decided not to decrease it any further because he was worried about having a flare-up of symptoms. On the other hand he cannot really describe any PMR like symptoms in the past year. He does have left knee pain, this is worse with more physical activity. 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 He does have indomethacin at home that he takes occasionally for the left knee pain but has not needed it much more than a few times a year. He remains on allopurinol 200 mg daily and has had no gout attacks in recent years. His cardiac situation seems stable. [facility] Medical History Arthritis Biventricular ICD (implantable cardioverter-defibrillator) in place CAD (coronary artery disease) Cardiomyopathy COVID-19 vaccine series completed Elevated cholesterol Gout LBBB (left bundle branch block) Polymyalgia rheumatica Surgical History H/O colonoscopy Stented coronary artery Family History Father CVD (cardiovascular disease) Heart attack Mother Cancer Maternal Grandfather Heart attack Social History (Updated 11/17/22 @ 11:09 by TRENT Gerber) Household Members: Spouse Are you a primary childcare aide to a significant other at home: No Do you presently have visiting nurse or other home services: No Alcohol intake: current Alcohol intake frequency: a few times a month Patient Tobacco Use Status: Never used Tobacco Review of Systems Const Details: Negative for appetite change, weight change, fever, chills, malaise and fatigue Eyes Details: Negative for vision change, dry eyes,headaches and dizziness Card Details: Negative chest pain, edema and syncope Resp Details: Negative for SOB, cough and wheezing GI Details: Negative indigestion/heartburn, nausea, abdominal pain, bowel changes, diarrhea, constipation and bloody stool. Endo Details: Negative for polyuria and polydypsia Dl/Lymph Details: Negative for excessive bruising or bleeding. Physical Exam Vital Signs: Last Vital Signs Temp 97.2 F 11/17/22 11:07 Pulse 76 11/17/22 11:07 BP 100/62 11/17/22 11:07 Pulse Ox 96 11/17/22 11:07 Oxygen Delivery Method Room Air 11/17/22 11:07 BMI result Body Mass Index 23.3 APPEARANCE: Patient in no acute distress EXTREMITIES: No edema, no calf tenderness, normal peripheral pulses. JOINT EXAM: Cervical Spine:.? Full range of motion without pain; no tenderness. No temporal artery tenderness, redness or swelling. Thoracic Spine:.? No scoliosis.? No tenderness on palpation. Lumbar Spine:.? Alignment normal.? Full range of motion with slight discomfort at the extremes of motion.? No tenderness. Chest Wall:.? No tenderness, swelling, increased warmth or erythema. Hands:.? Normal pain-free range of motion without tenderness, swelling, increased warmth or erythema. Able to make a full fist and has a good agri business agent strength. Wrists:.? Normal pain-free range of motion without tenderness, swelling, increased warmth or erythema. Elbows:. Normal pain-free range of motion without tenderness, swelling, increased warmth or erythema. Shoulders:.?? Full range of motion without pain. No tenderness, weakness, swelling, increased warmth or erythema. Hips:.? Full range of motion without pain. Hip bursa:.? No tenderness. Knees:.??Right:? Normal pain-free range of motion with mild patellofemoral crepitus but no effusion, tenderness, swelling, increased warmth or erythema.? Left:? Mild pain with full extension.? He does lack about 5 degrees of full extension.? There is significant varus deformity at the knee.? There is no effusion present with mild medial tenderness.? No popliteal swelling or tenderness. Ankles:.? Normal pain-free range of motion without tenderness, swelling, increased warmth or erythema. Feet:? Normal pain-free range of motion with mild 1st MTP?bony enlargement but no tenderness, soft tissue?swelling, increased warmth or erythema. ? Assessment & Plan Assessment & Plan (1) Gout: Comment: on allopurinol Code(s): M10.9 - Gout, unspecified (2) Polymyalgia rheumatica: Comment: taking prednisone Code(s): M35.3 - Polymyalgia rheumatica (3) Osteoarthritis of left knee: Code(s): M17.12 - Unilateral primary osteoarthritis, left knee Plan He has not seem to have any active PMR symptoms. He has never had any GCA symptoms. At this point I think we should reduce his prednisone to 1 mg daily but he still seems reluctant. We elected to go with 2 mg alternating with 1 mg daily for now. His left knee remains symptomatic with osteoarthritis. His family seems to be pressure him to consider surgical treatment but he does not really feel all that uncomfortable. With the valgus deformity he has he may have more difficulty achieving optimal surgical outcome. I did tell him to seek more than one orthopedic opinion before he agreed to the knee replacement but he does not really want to proceed with even the 1st evaluation at this point. His experience in the summer was that when he was more active the knee pain gradually improved. He brings up the possibility of some physical therapy which I think that is a good idea. He wants to go to [facility] to see physical therapist Mr. Vargas who he had visited before. We will put that referral through. Otherwise a return in 5 or 6 months seems reasonable. Orders: Orders PT Evaluation and Treatment Today M17.12 - Unilateral primary osteoarthritis, left knee Medications: Changed From prednisone two tab daily, may take 3 tabs on bad days 200 tabs 1RF M35.3 - Polymyalgia rheumatica To prednisone One tab alternating with 2 tab daily 150 tabs 1RF M35.3 - Polymyalgia rheumatica Coding Level of Care Code Est Pt Level 3 (13240) Diagnoses Gout M10.9 Polymyalgia rheumatica M35.3 Osteoarthritis of left knee M17.12
[2022-11-17 11:07] VITALS: BP 100/62; PULSE 76; TEMP 36.2; O2SAT 96; BMI 23.3
== END 2022-11-17 11:36 | disposition home or self-care (01) ==
PROVIDERS: PCP Internal Medicine; Visit Provider Internal Medicine Rheumatology
DX: M10.9 Gout, unspecified (principal); M35.3 Polymyalgia rheumatica; M17.12 Unilateral primary osteoarthritis, left knee
CPT/HCPCS: 99213

== ENCOUNTER → 2022-11-17 10:48 | Outpatient (BNVA) | payer MEDICARE, OTHER, SELFPAY | PROVIDERS: PCP Internal Medicine; Visit Provider Internal Medicine Rheumatology | DX: M10.9 Gout, unspecified (principal); M35.3 Polymyalgia rheumatica; M17.12 Unilateral primary osteoarthritis, left knee; Z79.52 Long term (current) use of systemic steroids; Z79.899 Other long term (current) drug therapy | CPT/HCPCS: 99212 ==

== ENCOUNTER → 2022-12-26 23:59 | Outpatient (BNV) | payer MEDICARE, OTHER, SELFPAY ==
--- NOTE | 2022-12-26 12:30 | MHC.OFFVIS ---
Intake Intake Visit Reasons: Remote HF Monitoring- [facility] Allergies bee pollen [BEE STINGS] Allergy (Severe, Verified 11/17/22 11:08) Anaphylaxis [facility] Medical History ([facility] 11[facility]29[facility]22 [facility] 10:[facility] Long-term current use of high risk medication other than anticoagulant COVID-19 vaccine series completed Arthritis Gout Polymyalgia rheumatica Elevated cholesterol LBBB (left bundle branch block) Biventricular ICD (implantable cardioverter-defibrillator) in place Cardiomyopathy CAD (coronary artery disease) Surgical History H/O colonoscopy Stented coronary artery Family History Father CVD (cardiovascular disease) Heart attack Mother Cancer Maternal Grandfather Heart attack Social History (Updated 11/17/22 @ 11:09 by TRENT Gerber) Household Members: Spouse Are you a primary hospice care sales consultant to a significant other at home: No Do you presently have visiting nurse or other home services: No Alcohol intake: current Alcohol intake frequency: a few times a month Patient Tobacco Use Status: Never used Tobacco Office Procedures Cardiac Device Check Cardiac Device Check Details: Remote heart failure report generated 12/26/2022. Heart failure parameters are stable 47033-Isvuxl Cardiac Device Interrogation, cardio physiologic monitor Procedure code (CPT) selection complete Coding Level of Care Code Procedure Only CPT Codes Cardiac Device Check - Cardiac Device 15: [id number]-Hhqxoe Cardiac Device Interrogation, cardio physiologic monitor ([id number])
== END ==
PROVIDERS: PCP Internal Medicine; Visit Provider Internal Medicine Cardiovascular Disease
DX: I42.9 Cardiomyopathy, unspecified (principal); T82.09XA Other mechanical complication of heart valve prosthesis, initial encounter
CPT/HCPCS: 93297; 93306

== ENCOUNTER → 2023-01-23 23:59 | Outpatient (BNV) | payer MEDICARE, OTHER, SELFPAY ==
--- NOTE | 2023-01-23 16:06 | MHC.OFFVIS ---
Intake Intake Visit Reasons: Remote ICD Check- [facility] Allergies bee pollen [BEE STINGS] Allergy (Severe, Verified 11/17/22 11:08) Anaphylaxis [facility] Medical History (Updated 11/29/22 @ 10:50 [facility] Long-term current use of high risk medication other than anticoagulant COVID-19 vaccine series completed Arthritis Gout Polymyalgia rheumatica Elevated cholesterol LBBB (left bundle branch block) Biventricular ICD (implantable cardioverter-defibrillator) in place Cardiomyopathy CAD (coronary artery disease) Surgical History H/O colonoscopy Stented coronary artery Family History Father CVD (cardiovascular disease) Heart attack Mother Cancer Maternal Grandfather Heart attack Social History (Updated 11/17/22 @ 11:09 by TRENT Gerber) Household Members: Spouse Are you a primary pet caregiver to a significant other at home: No Do you presently have visiting nurse or other home services: No Alcohol intake: current Alcohol intake frequency: a few times a month Patient Tobacco Use Status: Never used Tobacco Office Procedures Cardiac Device Check Cardiac Device Check Details: Remote ICD report generated 01/23/2023. ICD function is adequate. Bi V pacing 97% of the time [id number] Cardiac Interrogation, implant defibrillator w/interim Procedure code (CPT) selection complete Assessment & Plan Assessment & Plan (1) Biventricular ICD (implantable cardioverter-defibrillator) in place: Comment: [facility] 2015 Code(s): Z95.810 - Presence of automatic (implantable) cardiac defibrillator Plan: Please see the note Coding Level of Care Code Procedure Only Diagnoses Biventricular ICD (implantable cardioverter-defibrillator) in place Z95.810 CPT Codes Cardiac Device Check - Cardiac Device 13: 29473-Nvlpzv Cardiac Interrogation, implant defibrillator w/interim ([id number])
== END ==
PROVIDERS: PCP Internal Medicine; Visit Provider Internal Medicine Cardiovascular Disease
DX: I42.9 Cardiomyopathy, unspecified (principal); Z95.810 Presence of automatic (implantable) cardiac defibrillator
CPT/HCPCS: 93295

== ENCOUNTER 2023-01-31 09:18 | Outpatient (AMB) | payer MEDICARE, OTHER, SELFPAY ==
[2023-01-31 09:25] VITALS: BP 120/60; PULSE 65; BMI 23.8
--- NOTE | 2023-01-31 09:25 | A.OFFVIS_ITS ---
Intake Vital Signs 01/31/23 09:25 Height 5 ft 10 in Weight 165 lb 12.602 oz BMI 23.8 BP 120/60 Blood Pressure Location Lt brachial Position Sitting Pulse 65 Intake Visit Reasons: 6 m follow up w/ EKG ? pre-op Intake Note: 6 mnth PT its feeling good. Laundry Clerk Required: No Accompanied by: Self / Same As Patient Allergies bee pollen [BEE STINGS] Allergy (Severe, Verified 01/31/23 09:29) Anaphylaxis Medication List - Last Reconciled 01/31/23 by Pacheco Crawford MD allopurinol 200 mg (2 x 100 mg) PO DAILY aspirin (Adult Low Dose Aspirin) 81 mg PO DAILY atorvastatin 80 mg PO BEDTIME digoxin 125 mcg PO DAILY indomethacin 25 mg PO TID PRN lisinopril 10 mg PO DAILY metoprolol succinate ER 100 mg PO DAILY prednisone One tab alternating with 2 tab daily HPI HPI Comments History of Present Illness Details MAGGIE comes for 6 months follow-up. He said he might be undergoing left knee surgery either in the spinal or general anesthesia. Very limited because of his knee arthritis. He denies any cardiovascular symptoms. Denies any prolonged palpitation irregular heartbeat. Denies any lightheadedness, syncope. Denies any ICD discharge. Denies any progressive symptoms of shortness of breath, angina. No orthopnea, PND, leg edema. Taking all his medications. [facility] Medical History Long-term current use of high risk medication other than anticoagulant COVID-19 vaccine series completed Arthritis Gout Polymyalgia rheumatica Elevated cholesterol LBBB (left bundle branch block) Biventricular ICD (implantable cardioverter-defibrillator) in place Cardiomyopathy CAD (coronary artery disease) Surgical History H/O colonoscopy Stented coronary artery Family History Father CVD (cardiovascular disease) Heart attack Mother Cancer Maternal Grandfather Heart attack Social History Household Members: Spouse Are you a primary director of health care marketing to a significant other at home: No Do you presently have visiting nurse or other home services: No Alcohol intake: current Alcohol intake frequency: a few times a month Patient Tobacco Use Status: Never used Tobacco Review of Systems Const Reports chills, Reports fatigue, Reports fever(s), Reports frequent falls, Reports weakness, Reports weight gain and Reports weight loss ENT Reports dizziness Card Reports chest pain, Reports leg edema, Reports lightheadedness, Reports palpitations, Reports dyspnea and Reports dyspnea on exertion Resp Reports cough, Reports dyspnea and Reports dyspnea on exertion GI Reports hematochezia Musc Reports abnormal gait, Reports muscle weakness, Reports numbness, Reports radiating pain into limb and Reports tingling Neuro Reports abnormal gait, Reports dizziness, Reports frequent falls, Reports numbness, Reports tingling and Reports weakness Endo Reports fatigue and Reports palpitations Physical Exam Vital Signs: Last Vital Signs Pulse 65 01/31/23 09:25 BP 120/60 01/31/23 09:25 BMI result Body Mass Index 23.8 Const General: cooperative, comfortable, no acute distress, alert, awake and well groomed Nutritional Appearance: thin Orientation/consciousness: patient oriented x3 Limitations: no limitations Neck Neck: Yes trachea midline, Yes supple and Yes no JVD Resp Effort & Inspection: normal respiratory effort Auscultation: clear to auscultation bilaterally Cardio Jugular venous distension: no JVD Palpation: normal PMI Rate: regular rate Rhythm: regular rhythm Heart sounds: S1 normal heart sound present and S2 normal heart sound present GI Auscultation: normal bowel sounds Skin General skin exam: no rashes or lesions noted Neuro General: patient oriented x3 and no focal motor deficits Extrem General: Yes no clubbing, cyanosis or edema Psych Appearance: grossly normal Office Procedures Cardiac Device Check Cardiac Device Check Details: Biventricular [facility] ICD in place. Programmed in DDDR at 60 beats per minute. Biventricular pacing 97% of the time. No significant episodes of atrial fibrillation noted. Atrial and biventricular pacing thresholds adequate and in our capture mode. Atrial ventricular sensing is excellent. Pacing and shock lead impedance is stable. Battery life is about 5 years [id number] Cardiac Device Check, multi lead implantable defibrillator Procedure code (CPT) selection complete EKG Details: EKG shows normal sinus rhythm with PACs with biventricular pacing [id number]-[id number], Complete Assessment & Plan Assessment & Plan (1) Preop cardiovascular exam: Code(s): Z01.810 - Encounter for preprocedural cardiovascular examination Plan: Preoperative cardiovascular risk stratification this elderly gentleman with prior coronary stenting with reduced exercise capacity to undergo intermediate risk surgery. I would suggest him to undergo vasodilating myocardial perfusion imaging for further risk stratification. This was discussed with him. The rationale for this was discussed. He understands agrees. This will be scheduled in near future. (2) CAD (coronary artery disease): Comment: Hx of CAD with LAD stent. Code(s): I25.10 - Atherosclerotic heart disease of [place] coronary artery without angina pectoris Plan: CAD status post LAD stenting in 2014. No recurrent symptoms of angina, however given his requirement for intermediate risk surgery reduce capacity will pursue with vasodilating myocardial perfusion imaging. Continue low-dose aspirin therapy. Continue high-intensity statin therapy with target goal LDL less than 70 mg/dL. Continue aggressive blood pressure control which is currently well optimized. Advised to maintain activity level as tolerated. (3) Cardiomyopathy: Comment: nonischemic Code(s): I42.9 - Cardiomyopathy, unspecified Plan: Patient with cardiomyopathy with [id number] LV systolic dysfunction. Clinically euvolemic and well compensated. There is no indication for digoxin therapy and this will be discontinued he has no progressive symptoms of heart failure. Continue lisinopril metoprolol therapy for neurohormonal modulation. Signs and symptoms of heart failure were discussed. Follow-up echocardiogram in near future. Avoidance of cardiotoxic agent was discussed. (4) Biventricular ICD (implantable cardioverter-defibrillator) in place: Comment: [facility] 2014 Code(s): Z95.810 - Presence of automatic (implantable) cardiac defibrillator Plan: Biventricular ICD in place working well. Bi V pacing 97% time. Patient has done well with cardiac resynchronization therapy with improvement in his LV ejection fraction. Will continue monitor remotely and in the office. Follow up in the clinic in 6 months time, sooner p.r.n.. Thank you for allowing me to partake in his care Orders: Orders CA lexiscan stress w byron Today I25.10 - Atherosclerotic heart disease of [place] coronary artery without angina pectoris, Z01.810 - Encounter for preprocedural cardiovascular examination CA echo transthoracic complete Today I42.9 - Cardiomyopathy, unspecified Coding Level of Care Code Est Pt Level 4 (97578) Diagnoses Preop cardiovascular exam Z01.810 CAD (coronary artery disease) I25.10 Cardiomyopathy I42.9 Biventricular ICD (implantable cardioverter-defibrillator) in place Z95.810 CPT Codes Cardiac Device Check - Cardiac Device 6: [id number] Cardiac Device Check, multi lead implantable defibrillator ([id number]) EKG - CPT: 20916-Syjyyedxifgssdyre, Complete ([id number])
== END 2023-01-31 10:01 | disposition home or self-care (01) ==
PROVIDERS: PCP Internal Medicine; Visit Provider Internal Medicine Cardiovascular Disease
DX: I25.10 Atherosclerotic heart disease of native coronary artery without angina pectoris (principal); I42.9 Cardiomyopathy, unspecified; Z95.810 Presence of automatic (implantable) cardiac defibrillator; Z01.810 Encounter for preprocedural cardiovascular examination
CPT/HCPCS: 93284; 99214

== ENCOUNTER → 2023-01-31 09:18 | Outpatient (BNVA) | payer MEDICARE, OTHER, SELFPAY | PROVIDERS: PCP Internal Medicine; Visit Provider Internal Medicine Cardiovascular Disease | DX: Z45.02 Encounter for adjustment and management of automatic implantable cardiac defibrillator (principal); Z01.810 Encounter for preprocedural cardiovascular examination; I25.10 Atherosclerotic heart disease of native coronary artery without angina pectoris; I42.9 Cardiomyopathy, unspecified | CPT/HCPCS: 93005; 99212 ==

== ENCOUNTER → 2023-02-16 23:59 | Outpatient (BNV) | payer MEDICARE, OTHER, SELFPAY ==
--- NOTE | 2023-02-21 08:20 | MHC.OFFVIS ---
Intake Intake Visit Reasons: Remote HF Monitoring- [facility] Allergies bee pollen [BEE STINGS] Allergy (Severe, Verified 01/31/23 09:29) Anaphylaxis PFSH Medical History Long-term current use of high risk medication other than anticoagulant COVID-19 vaccine series completed Arthritis Gout Polymyalgia rheumatica Elevated cholesterol LBBB (left bundle branch block) Biventricular ICD (implantable cardioverter-defibrillator) in place Cardiomyopathy CAD (coronary artery disease) Surgical History H/O colonoscopy Stented coronary artery Family History Father CVD (cardiovascular disease) Heart attack Mother Cancer Maternal Grandfather Heart attack Social History Household Members: Spouse Are you a primary early breastfeeding care specialist to a significant other at home: No Do you presently have visiting nurse or other home services: No Alcohol intake: current Alcohol intake frequency: a few times a month Patient Tobacco Use Status: Never used Tobacco Office Procedures Cardiac Device Check Cardiac Device Check Details: Remote heart failure report generated 02/08/2023. Heart failure parameters are stable [id number] Cardiac Device Interrogation, cardio physiologic monitor Procedure code (CPT) selection complete Assessment & Plan Assessment & Plan (1) Biventricular ICD (implantable cardioverter-defibrillator) in place: Comment: [facility] 2015 Code(s): Z95.810 - Presence of automatic (implantable) cardiac defibrillator Plan: See above Coding Level of Care Code Procedure Only Diagnoses Biventricular ICD (implantable cardioverter-defibrillator) in place Z95.810 CPT Codes Cardiac Device Check - Cardiac Device 15: [id number] Cardiac Device Interrogation, cardio physiologic monitor ([id number])
== END ==
PROVIDERS: PCP Internal Medicine; Visit Provider Internal Medicine Cardiovascular Disease
DX: I42.9 Cardiomyopathy, unspecified (principal); Z95.810 Presence of automatic (implantable) cardiac defibrillator
CPT/HCPCS: 93297

== ENCOUNTER → 2023-03-23 07:56 | Outpatient (REF) | payer MEDICARE, OTHER, SELFPAY ==
--- NOTE | ~2023-03-23 | NM_ITS ---
Myocardial perfusion study Indication: Prior CAD to evaluate for myocardial ischemia Technique: The patient was brought in for a Lexiscan perfusion study on 03/23/2023. Patient performed low-level exercise and was injected 0.4 mg of Lexiscan intravenously. Within a minute of injection, 25 mCi of sestamibi was given intravenously. Images were obtained using the SPECT gamma camera interlaced with the gating device. Images were obtained in supine position. Resting perfusion study was performed on 03/24/2023. Patient was administered 25 mCi of sestamibi intravenously at rest. Images were then obtained in supine position. Images obtained with and without CT attenuation. Total DLP 76 mGy-cm. Images were processed with the software and compared side to side in short axis, horizontal long axis and vertical long axis views. Findings: The stress perfusion study showed non attenuated images show moderate to severely reduced uptake in the basal inferior wall and mildly reduced uptake in the mid inferior wall of the LV myocardium. Remainder of the LV myocardium is normally perfused. Attenuation corrected images show moderately reduced uptake in the basal inferior wall of the LV myocardium.. The gated study shows reduced LV systolic function with calculated LVEF of 40-50%. LV cavity is mildly to moderately size. The gated study shows reduced wall thickening and contraction of basal inferior segments. Resting study shows no change in perfusion pattern compared to stress perfusion study. Gating at rest reveals basal inferior wall motion with ejection fraction at 40-50%. The findings are consistent with fixed basal inferior wall defect consistent with prior myocardial infarction, most likely nontransmural. There is no evidence of ischemia. NM/NM byron perf SPECT rest & str Impression: 1. Myocardial perfusion imaging study shows no ischemia with basal inferior nontransmural myocardial infarction 2. Gated LVEF is 40-50%% 3. Transient ischemic dilatation not present but LV cavity is dilated EKG is nondiagnostic for ischemia
--- NOTE | 2023-03-23 08:00 | CA_ITS ---
Transthoracic Echocardiogram Patient (Last, First, Middle): Angelo Maurer, Gender: Male Date of : 1940 Age: 82 Procedure Date: 03/23/2023 Procedure Type: Transthoracic Echocardiogram Location: OP Height: 177.8 cm Weight: 73.94 kg BSA: 1.91 m2 Heart Rate: bpm BP: 96 / 60 mmHg Purchasing Engineer: HAYDEE Referring MD: Pacheco Crawford MD Emergency Medicine: Pacheco Crawford MD Symptoms: I42.9 - Cardiomyopathy, unspecified Study Quality: Adequate ECG Rhythm: Ventriculary paced rhythm Conclusions: - 1. Trmj-ea-bqjhzucf LV systolic dysfunction with LVEF of 40-45% with impaired relaxation filling pattern 2. Normal cardiac valvular Doppler 3. Mvrl-yj-emcgdjgz enlargement of ascending aorta at 4.4 cm 4. Normal RV systolic pressure 5. No gross pericardial effusion Findings Left Ventricle Normal left ventricular cavity size. There is normal left ventricular wall thickness. The left ventricular systolic function is mild to moderately decreased. The visually estimated ejection fraction is between 40-45%. Spectral Doppler is indicative of an impaired relaxation filling pattern. E/E prime ratio is between 8 and 15 consistent with indeterminate filling pressures. Right Ventricle Normal right ventricular cavity size and systolic function. There is an ICD wire seen in the right ventricle. Atria The left atrium is likely dilated. There is no evidence of interatrial shunt. The right atrium is normal in size. A pacemaker wire is identified in the right atrium. Aortic Valve Normal aortic valve structure and function. There is mild calcification of the aortic valve. There is no aortic valve stenosis. There is no aortic valve regurgitation. Mitral Valve Normal mitral valve structure and function. There is trace mitral valve regurgitation. There is no mitral valve stenosis. Pulmonic Valve The pulmonic valve is likely normal. Tricuspid Valve Normal tricuspid valve structure. There is trace tricuspid valve regurgitation. The right ventricular systolic pressure is normal. The right ventricular systolic pressure is 19 mmHg. Normal right atrial pressure. There is no evidence of pulmonary hypertension. Great Vessels The pulmonary artery was not well visualized. There is mild dilatation of the ascending aorta measuring 4.40 cm. Venous The inferior vena cava is normal in size and collapses greater than 50% with inspiration. Pericardium/Pleural There is no evidence of pericardial effusion. Prior Study Comparison Changes noted compared to prior study dated: 01/21/2022. LV systolic function is marginally reduced. Ascending aorta is further enlarged. Delay in reporting due to technical issues Measurements 2D Linear Measurements IVSd: 1.02 0.6-0.9/0.6-1.0 cm LVIDd: 5.03 3.9-5.3/4.2-5.9 cm LVIDd Index: 2.63 2.4-3.2/2.2-3.1 cm/m2 LVIDs: 3.74 2.0-3.6 cm LVPWd: 0.96 0.7-1.1 cm LA Diam: 3.30 2.7-3.8/3.0-4.0 cm LAIDs Index: 1.73 1.5-2.3 cm/m2 LV Mass: 226.05 67-162/88-224 g LV Mass Index: 118.35 43-95/49-115 g/m2 LVOT Diam: 2.20 3.0+(-)1.3 cm 2D Systolic Function EF 4C: 38.70 >55% EF 2C: 44.00 >55% EF BiP: 40.30 >55% Mitral Valve MV Pk E: 0.36 MV PK A: 0.53 MV Decel Time: 346.00 E/A: 0.70 E'Lateral: 6.31 E'Medial: 5.44 E/E' Med: 6.60 E/E' Lat: 5.70 PHT: 101.00 MVA PHT: 2.18 Decel Logan: 1.04 Aortic Valve AoV Pk Bertrand: 1.05 AoV Pk Grad: 4.00 LVOT LVOT Pk Bertrand: 0.76 LVOT Pk Grad: 2.00 LVOT Diam: 2.20 LVOT Area: 3.80 Diastolic Function MV Pk E: 0.36 MV Pk A: 0.53 E/A: 0.70 E'Medial: 5.44 E/E' Med: 6.60 E' Laterial: 6.31 E/E' Lat: 5.70 Right Ventricle TAPSE (mm): 19.80 TVS' Bertrand: 10.80 Tricuspid Valve TR Pk Bertrand: 2.01 TR Pk Grad: 16.00 RA Press: 3.00 RVSP: 19.00 Great Vessels Aorta Sinus of Valsalva: 3.49 2.0-3.[address] Ridge: 2.71 1.7-3.4 cm Ao Asc: 4.40 2.1-3.4 cm Updated in Other Vendor System with Status of Final Pacheco Crawford MD electronically signed on 03/24/2023 2:26:44 PM with status of Final
--- NOTE | 2023-03-23 08:00 | CA_ITS ---
Acquisition Time: 2023-03-23 09:03:21 Total Exercise Time: 00:02:00 Test Indications: Pre-Op Medications: See H Protocol: LEXISCAN Max HR: 105 BPM 75% of Pred: 140 BPM Max BP: 112/066 mmHG Max Work Load: 1.0 METS Pharmacological stress per protocol with Lexiscan injection while sititng, without anginal symptoms, with isolated PVCs, with normotensive response to injection, with nondiagnostic EKGs. Nuclear images pending. Test reviewed with Dr. Crawford Referred By: Pacheco Crawford Overread By: Lisa Maria
[2023-03-23 10:42] LABS: MANUAL DIFF FLAG NO
[2023-03-23 11:40] LABS: Basophils Absolute Auto 0.1 X10*3/uL (0.0-0.2); Basophils Percent Auto 0.4 % (0-2); Eosinophils Absolute Auto 0.2 X10*3/uL (0.0-0.4); Eosinophils Percent Auto 1.7 % (0-4); Imm Gran Abs Auto 0.03 X10*3/uL (0.00-0.03); Imm Gran Pct Auto 0.3 % (0.0-0.4); Lymphocytes Absolute Auto 1.7 X10*3/uL (1.2-4.9); Lymphocytes Percent Auto 15.3 % (20-40); Mean Corpuscular HGB Conc 34.1 g/dl (31.0-36.0); Mean Corpuscular Hemoglobin 34.7 pg (27.0-33.0); Mean Corpuscular Volume 101.9 fL (80.0-98.0); Mean Platelet Volume 10.3 fL (9.4-12.4); Monocytes Absolute Auto 0.9 X10*3/uL (0.1-1.2); Monocytes Percent Auto 7.9 % (2-11); Neutrophils Absolute Auto 8.4 x10*3/uL (2.0-8.3); Neutrophils Percent Auto 74.4 % (45-73); Platelet Count 160 X10*3/uL (160-400); Red Blood Count 4.32 X10*6/uL (4.60-5.80); Red Cell Distribution Width 13.9 % (11.0-16.0); White Blood Count 11.3 X10*3/uL (4.8-10.8)
[2023-03-23 12:16] LABS: Alanine Aminotransferase 18 U/L (0-40); Alkaline Phosphatase 120 U/L (39-117); Anion Gap 13 (12-20); Aspartate Amino Transferase 18 U/L (5-37); Bilirubin Total 0.7 mg/dL (0.0-1.0); Blood Urea Nitrogen 22 mg/dL (9-16); Carbon Dioxide 27 mmol/L (22-29); Chloride 107 mmol/L (96-108); Estimated Glomerular Filt Rate > 60; Glucose Random 117 mg/dL (60-115); Potassium 3.8 mmol/L (3.3-5.1); Sodium 143 mmol/L (135-145); Total Protein 7.2 g/dL (6.5-8.0)
[2023-03-23 12:21] LABS: Erythrocyte Sedimentation Rate 7 MM/HR (0-15)
== END ==
LOC: HO.CARD 07:56
PROVIDERS: Nurse Practitioner Family; PCP Internal Medicine; Visit Provider Internal Medicine Cardiovascular Disease
DX: Z01.810 Encounter for preprocedural cardiovascular examination (principal); I25.10 Atherosclerotic heart disease of native coronary artery without angina pectoris; I42.9 Cardiomyopathy, unspecified; M10.9 Gout, unspecified; Z79.899 Other long term (current) drug therapy
CPT/HCPCS: 36415; 78452; 80053; 85025; 85652; 86140; 93017; 93306; A9500; J0280; J2785

== ENCOUNTER → 2023-03-23 08:00 | Outpatient (BNV) | payer MEDICARE, OTHER, SELFPAY | PROVIDERS: PCP Internal Medicine; Visit Provider Nurse Practitioner | DX: I25.10 Atherosclerotic heart disease of native coronary artery without angina pectoris (principal) | CPT/HCPCS: 78452; 93016; 93018; 93306 ==

== ENCOUNTER → 2023-03-31 23:59 | Outpatient (BNV) | payer MEDICARE, OTHER, SELFPAY ==
--- NOTE | 2023-04-03 12:38 | A.OFFVIS_ITS ---
Intake Intake Visit Reasons: Remote HF Monitoring- [facility] Allergies bee pollen [BEE STINGS] Allergy (Severe, Verified 01/31/23 09:29) Anaphylaxis PFSH Medical History Long-term current use of high risk medication other than anticoagulant COVID-19 vaccine series completed Arthritis Gout Polymyalgia rheumatica Elevated cholesterol LBBB (left bundle branch block) Biventricular ICD (implantable cardioverter-defibrillator) in place Cardiomyopathy CAD (coronary artery disease) Surgical History H/O colonoscopy Stented coronary artery Family History Father CVD (cardiovascular disease) Heart attack Mother Cancer Maternal Grandfather Heart attack Social History Household Members: Spouse Are you a primary healthcare risk control consultant to a significant other at home: No Do you presently have visiting nurse or other home services: No Alcohol intake: current Alcohol intake frequency: a few times a month Patient Tobacco Use Status: Never used Tobacco Office Procedures Cardiac Device Check Cardiac Device Check Details: Remote heart failure report generated 03/31/2023. Heart failure parameters are stable [id number] Cardiac Device Interrogation, cardio physiologic monitor Procedure code (CPT) selection complete Assessment & Plan Assessment & Plan (1) Biventricular ICD (implantable cardioverter-defibrillator) in place: Comment: [facility] 2015 Code(s): Z95.810 - Presence of automatic (implantable) cardiac defibrillator Plan: See above Coding Level of Care Code Procedure Only Diagnoses Biventricular ICD (implantable cardioverter-defibrillator) in place Z95.810 CPT Codes Cardiac Device Check - Cardiac Device 15: [id number] Cardiac Device Interrogation, cardio physiologic monitor ([id number])
== END ==
PROVIDERS: PCP Internal Medicine; Visit Provider Internal Medicine Cardiovascular Disease
DX: I42.9 Cardiomyopathy, unspecified (principal); Z95.810 Presence of automatic (implantable) cardiac defibrillator
CPT/HCPCS: 93297

== ENCOUNTER → 2023-04-24 23:59 | Outpatient (BNV) | payer MEDICARE, OTHER, SELFPAY ==
--- NOTE | 2023-04-25 16:31 | MHC.OFFVIS ---
Intake Intake Visit Reasons: Remote ICD Check- [facility] Allergies bee pollen [BEE STINGS] Allergy (Severe, Verified 01/31/23 09:29) Anaphylaxis PFSH Medical History Long-term current use of high risk medication other than anticoagulant COVID-19 vaccine series completed Arthritis Gout Polymyalgia rheumatica Elevated cholesterol LBBB (left bundle branch block) Biventricular ICD (implantable cardioverter-defibrillator) in place Cardiomyopathy CAD (coronary artery disease) Surgical History H/O colonoscopy Stented coronary artery Family History Father CVD (cardiovascular disease) Heart attack Mother Cancer Maternal Grandfather Heart attack Social History Household Members: Spouse Are you a primary health care manager to a significant other at home: No Do you presently have visiting nurse or other home services: No Alcohol intake: current Alcohol intake frequency: a few times a month Patient Tobacco Use Status: Never used Tobacco Office Procedures Cardiac Device Check Cardiac Device Check Details: Remote ICD report generated 04/24/2023. Bi V pacing 97% of the time [id number] Cardiac Interrogation, implant defibrillator w/interim Procedure code (CPT) selection complete Assessment & Plan Assessment & Plan (1) Biventricular ICD (implantable cardioverter-defibrillator) in place: Comment: [facility] 2015 Code(s): Z95.810 - Presence of automatic (implantable) cardiac defibrillator Plan: See above Coding Level of Care Code Procedure Only Diagnoses Biventricular ICD (implantable cardioverter-defibrillator) in place Z95.810 CPT Codes Cardiac Device Check - Cardiac Device 13: [id number] Cardiac Interrogation, implant defibrillator w/interim ([id number])
== END ==
PROVIDERS: PCP Internal Medicine; Visit Provider Internal Medicine Cardiovascular Disease
DX: I42.9 Cardiomyopathy, unspecified (principal); Z95.810 Presence of automatic (implantable) cardiac defibrillator
CPT/HCPCS: 93295

== ENCOUNTER 2023-04-27 10:19 | Outpatient (REF) | payer MEDICARE, OTHER, SELFPAY ==
[2023-04-27 11:43] LABS: Uric Acid 5.1 mg/dL (3.4-7.0)
== END 2023-04-27 10:20 | disposition home or self-care (01) ==
LOC: HO.LAB 10:19
PROVIDERS: PCP Internal Medicine; Visit Provider Nurse Practitioner Family
DX: M10.9 Gout, unspecified (principal); Z79.899 Other long term (current) drug therapy
CPT/HCPCS: 36415; 84550

== ENCOUNTER → 2023-05-01 23:59 | Outpatient (BNV) | payer MEDICARE, OTHER, SELFPAY ==
--- NOTE | 2023-05-01 15:39 | A.OFFVIS_ITS ---
Intake Intake Visit Reasons: Remote HF Monitoring- [facility] Allergies bee pollen [BEE STINGS] Allergy (Severe, Verified 01/31/23 09:29) Anaphylaxis PFSH Medical History Long-term current use of high risk medication other than anticoagulant COVID-19 vaccine series completed Arthritis Gout Polymyalgia rheumatica Elevated cholesterol LBBB (left bundle branch block) Biventricular ICD (implantable cardioverter-defibrillator) in place Cardiomyopathy CAD (coronary artery disease) Surgical History H/O colonoscopy Stented coronary artery Family History Father CVD (cardiovascular disease) Heart attack Mother Cancer Maternal Grandfather Heart attack Social History Household Members: Spouse Are you a primary dialysis patient care technician to a significant other at home: No Do you presently have visiting nurse or other home services: No Alcohol intake: current Alcohol intake frequency: a few times a month Patient Tobacco Use Status: Never used Tobacco Office Procedures Cardiac Device Check Cardiac Device Check Details: Remote heart failure report generated 05/01/2023. Heart failure parameters are stable [id number] Cardiac Device Interrogation, cardio physiologic monitor Procedure code (CPT) selection complete Assessment & Plan Assessment & Plan (1) Biventricular ICD (implantable cardioverter-defibrillator) in place: Comment: [facility] 2015 Code(s): Z95.810 - Presence of automatic (implantable) cardiac defibrillator Plan: See above Coding Level of Care Code Procedure Only Diagnoses Biventricular ICD (implantable cardioverter-defibrillator) in place Z95.810 CPT Codes Cardiac Device Check - Cardiac Device 15: [id number] Cardiac Device Interrogation, cardio physiologic monitor ([id number])
== END ==
PROVIDERS: PCP Internal Medicine; Visit Provider Internal Medicine Cardiovascular Disease
DX: I42.9 Cardiomyopathy, unspecified (principal); Z95.810 Presence of automatic (implantable) cardiac defibrillator
CPT/HCPCS: 93297

== ENCOUNTER 2023-05-18 09:48 | Outpatient (AMB) | payer MEDICARE, OTHER, SELFPAY ==
--- NOTE | 2023-05-18 09:51 | MHC.OFFVIS ---
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 Mims, presents today for follow up. Manager Relocation Required: No Accompanied by: Self / Same As Patient Allergies bee pollen [BEE STINGS] Allergy (Severe, Verified 05/18/23 09:57) Anaphylaxis HPI HPI Comments History of Present Illness Details Mr. Maurer 83yoM return to clinic for follow-up his PMR, gout and osteoarthritis. He remains at 2 mg daily prednisone. At last visit Prednisone was decreased to 1 mg but he finds that he has some return of achiness to his shoulders whenever he comes off of 2 mg, so returned to 2 mg. Other than that he has had not any PMR like symptoms in the past year. He reports left knee pain, which worsens with more physical activity and is consulting with ortho for resolution. He takes indomethicin occasionally for the left knee pain but has not needed it more than a few times a year. He remains on allopurinol 200 mg daily and denies gout attacks in recent years. 11/17/2022 Dr. Mims: his PMR, gout and osteoarthritis. He remains at 2 mg daily prednisone. He decided not to decrease it any further because he was worried about having a flare-up of symptoms. On the other hand he cannot really describe any PMR like symptoms in the past year. He does have left knee pain, this is worse with more physical activity. 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 He does have indomethacin at home that he takes occasionally for the left knee pain but has not needed it much more than a few times a year. He remains on allopurinol 200 mg daily and has had no gout attacks in recent years. His cardiac situation seems stable. [facility] Medical History Long-term current use of high risk medication other than anticoagulant COVID-19 vaccine series completed Arthritis Gout Polymyalgia rheumatica Elevated cholesterol LBBB (left bundle branch block) Biventricular ICD (implantable cardioverter-defibrillator) in place Cardiomyopathy CAD (coronary artery disease) Surgical History H/O colonoscopy Stented coronary artery Family History Father CVD (cardiovascular disease) Heart attack Mother Cancer Maternal Grandfather Heart attack Social History Household Members: Spouse Are you a primary anesthesiologist and critical care to a significant other at home: No Do you presently have visiting nurse or other home services: No Alcohol intake: current Alcohol intake frequency: a few times a month Patient Tobacco Use Status: Never used Tobacco Review of Systems Const All systems reviewed & are unremarkable except as noted in HPI and below Physical Exam Vital Signs: Last Vital Signs Temp 97.1 F 05/18/23 09:53 Pulse 69 05/18/23 09:53 BP 130/90 H 05/18/23 09:53 Pulse Ox 97 05/18/23 09:53 Oxygen Delivery Method Room Air 05/18/23 09:53 BMI result Body Mass Index 23.9 APPEARANCE: Patient in no acute distress, groomed and nourished HEART:? Regular rhythm, S1-S2 heard, no murmurs, rubs or gallops. LUNG:? Clear to auscultation EXTREMITIES: No edema, no calf tenderness, normal peripheral pulses. JOINT EXAM: Cervical Spine:.? Full range of motion without pain; no tenderness. No temporal artery tenderness, redness or swelling. Thoracic Spine:.? No scoliosis.? No tenderness on palpation. Lumbar Spine:.? Alignment normal.? Full range of motion with slight discomfort at the extremes of motion.? No tenderness. Chest Wall:.? No tenderness, swelling, increased warmth or erythema. Hands:.? Normal pain-free range of motion without tenderness, swelling, increased warmth or erythema. Able to make a full fist and has a good diabetes physician strength. Wrists:.? Normal pain-free range of motion without tenderness, swelling, increased warmth or erythema. Elbows:. Normal pain-free range of motion without tenderness, swelling, increased warmth or erythema. Shoulders:.?? Full range of motion without pain. No tenderness, weakness, swelling, increased warmth or erythema. Hips:.? Full range of motion without pain. Hip bursa:.? No tenderness. Knees:.??Right:? Normal pain-free range of motion with mild patellofemoral crepitus but no effusion, tenderness, swelling, increased warmth or erythema.? Left:? Mild pain with full extension.? He does lack about 5 degrees of full extension.? There is significant varus deformity at the knee.? There is no effusion present with mild medial tenderness.? No popliteal swelling or tenderness. Ankles:.? Normal pain-free range of motion without tenderness, swelling, increased warmth or erythema. Feet:? Normal pain-free range of motion with mild 1st MTP?bony enlargement but no tenderness, soft tissue?swelling, increased warmth or erythema. ? Results Reviewed Results Reviewed: Laboratory Tests 01/31/22 01/31/22 12:46 12:46 ESR 8 Creatinine 1.02 C-Reactive Protein 0.20 Assessment & Plan Assessment & Plan (1) Gout: Comment: on allopurinol Code(s): M10.9 - Gout, unspecified Qualifiers: Gout site: multiple sites Gout etiology: idiopathic Chronicity: chronic Presence of tophus: without tophus Qualified Code(s): M1A.09X0 - Idiopathic chronic gout, multiple sites, without tophus (tophi) (2) Polymyalgia rheumatica: Comment: taking prednisone Code(s): M35.3 - Polymyalgia rheumatica (3) Osteoarthritis of left knee: Code(s): M17.12 - Unilateral primary osteoarthritis, left knee Qualifiers: Osteoarthritis type: primary Qualified Code(s): M17.12 - Unilateral primary osteoarthritis, left knee (4) Long-term current use of high risk medication other than anticoagulant: Code(s): Z79.899 - Other skilled nursing (current) drug therapy Plan #PMR: The patient is being treated for PMR for the last 10 years. The PMR is largely resolved but he may have some prednisone dependency. He will continue with the 2mg QD. #OA Left Knee: Continues to deny surgical treatment. He says when he was more active the knee pain improves. He has done PT #Gout: Uric acid 5.1. Continue with Allopurinol 200 mg QD. I spent 35 minutes reviewing history, evaluating patient and documenting F/u 6 months Orders: Orders C Reactive Protein 6 Months M35.3 - Polymyalgia rheumatica, Z79.899 - Other skilled nursing (current) drug therapy Complete Blood Count Auto Diff 6 Months M35.3 - Polymyalgia rheumatica, Z79.899 - Other exterminator helper (current) drug therapy Comprehensive Met. Panel 6 Months M35.3 - Polymyalgia rheumatica, Z79.899 - Other exterminator helper (current) drug therapy Erythrocyte Sedimentation Rate 6 Months M35.3 - Polymyalgia rheumatica, Z79.899 - Other exterminator helper (current) drug therapy Uric Acid 6 Months M35.3 - Polymyalgia rheumatica, Z79.899 - Other skilled nursing (current) drug therapy Coding Level of Care Code Est Pt Level 3 (31170) Diagnoses Idiopathic chronic gout of multiple sites without tophus M1A.09X0 Gout site: multiple sites Gout etiology: idiopathic Chronicity: chronic Presence of tophus: without tophus Polymyalgia rheumatica M35.3 Primary osteoarthritis of left knee M17.12 Osteoarthritis type: primary Long-term current use of high risk medication other than anticoagulant Z79.899
[2023-05-18 09:53] VITALS: BP 130/90; PULSE 69; TEMP 36.2; O2SAT 97; BMI 23.9
== END 2023-05-18 10:25 | disposition home or self-care (01) ==
PROVIDERS: PCP Internal Medicine; Visit Provider Nurse Practitioner Family
DX: M1A.09X0 Idiopathic chronic gout, multiple sites, without tophus (tophi) (principal); M35.3 Polymyalgia rheumatica; M17.12 Unilateral primary osteoarthritis, left knee; Z79.899 Other long term (current) drug therapy
CPT/HCPCS: 99213

== ENCOUNTER → 2023-05-18 09:48 | Outpatient (BNVA) | payer MEDICARE, OTHER, SELFPAY | PROVIDERS: PCP Internal Medicine; Visit Provider Nurse Practitioner Family | DX: M1A.09X0 Idiopathic chronic gout, multiple sites, without tophus (tophi) (principal); M35.3 Polymyalgia rheumatica; M17.12 Unilateral primary osteoarthritis, left knee; Z79.899 Other long term (current) drug therapy | CPT/HCPCS: 99212 ==

== ENCOUNTER → 2023-07-30 23:59 | Outpatient (BNV) | payer MEDICARE, OTHER, SELFPAY ==
--- NOTE | 2023-08-01 12:33 | A.OFFVIS_ITS ---
Intake Visit Reasons: Remote ICD check- [facility] Allergies bee pollen [BEE STINGS] Allergy (Severe, Verified 05/18/23 09:57) Anaphylaxis [facility] Medical History Long-term current use of high risk medication other than anticoagulant COVID-19 vaccine series completed Arthritis Gout Polymyalgia rheumatica Elevated cholesterol LBBB (left bundle branch block) Biventricular ICD (implantable cardioverter-defibrillator) in place Cardiomyopathy CAD (coronary artery disease) Surgical History H/O colonoscopy Stented coronary artery Family History Father CVD (cardiovascular disease) Heart attack Mother Cancer Maternal Grandfather Heart attack Social History Household Members: Spouse Are you a primary care management specialist to a significant other at home: No Do you presently have visiting nurse or other home services: No Alcohol intake: current Alcohol intake frequency: a few times a month Patient Tobacco Use Status: Never used Tobacco Office Procedures Cardiac Device Check Cardiac Device Check Details: Remote ICD report generated 07/30/2023. ICD function is adequate. Bi V pacing is slightly lower at 96%. Multiple nonsustained ventricular [place]ted [id number] Cardiac Interrogation, implant defibrillator w/interim Procedure code (CPT) selection complete Assessment & Plan Assessment & Plan (1) Biventricular ICD (implantable cardioverter-defibrillator) in place: Comment: [facility] 2015 Code(s): Z95.810 - Presence of automatic (implantable) cardiac defibrillator Category: Medical Plan: See above Coding Level of Care Code Procedure Only Diagnoses Biventricular ICD (implantable cardioverter-defibrillator) in place Z95.810 CPT Codes Cardiac Device Check - Cardiac Device 13: [id number] Cardiac Interrogation, implant defibrillator w/interim ([id number])
== END ==
PROVIDERS: PCP Internal Medicine; Visit Provider Internal Medicine Cardiovascular Disease
DX: R00.0 Tachycardia, unspecified (principal); Z95.810 Presence of automatic (implantable) cardiac defibrillator
CPT/HCPCS: 93295

== ENCOUNTER → 2023-10-23 23:59 | Outpatient (BNV) | payer MEDICARE, OTHER, SELFPAY ==
--- NOTE | 2023-10-30 17:20 | A.OFFVIS_ITS ---
Intake Visit Reasons: Remote ICD check- [facility] Allergies bee pollen [BEE STINGS] Allergy (Severe, Verified 05/18/23 09:57) Anaphylaxis [facility] Medical History Long-term current use of high risk medication other than anticoagulant COVID-19 vaccine series completed Arthritis Gout Polymyalgia rheumatica Elevated cholesterol LBBB (left bundle branch block) Biventricular ICD (implantable cardioverter-defibrillator) in place Cardiomyopathy CAD (coronary artery disease) Surgical History H/O colonoscopy Stented coronary artery Family History Father CVD (cardiovascular disease) Heart attack Mother Cancer Maternal Grandfather Heart attack Social History Household Members: Spouse Are you a primary date night caregiver to a significant other at home: No Do you presently have visiting nurse or other home services: No Alcohol intake: current Alcohol intake frequency: a few times a month Patient Tobacco Use Status: Never used Tobacco Office Procedures Cardiac Device Check Cardiac Device Check Details: Remote ICD report generated 10/23/2023. ICD function is adequate. Biventricular pacing 95% of time. [id number] Cardiac Interrogation, implant defibrillator w/interim Procedure code (CPT) selection complete Assessment & Plan Assessment & Plan (1) Biventricular ICD (implantable cardioverter-defibrillator) in place: Comment: [facility] 2015 Code(s): Z95.810 - Presence of automatic (implantable) cardiac defibrillator Category: Medical Plan: See above Coding Level of Care Code Procedure Only Diagnoses Biventricular ICD (implantable cardioverter-defibrillator) in place Z95.810 CPT Codes Cardiac Device Check - Cardiac Device 13: [id number] Cardiac Interrogation, implant defibrillator w/interim ([id number])
== END ==
PROVIDERS: PCP Internal Medicine; Visit Provider Internal Medicine Cardiovascular Disease
DX: Z45.02 Encounter for adjustment and management of automatic implantable cardiac defibrillator (principal)
CPT/HCPCS: 93295

== ENCOUNTER 2023-10-31 12:32 | Outpatient (AMB) | payer MEDICARE, OTHER, SELFPAY ==
[2023-10-31 12:39] VITALS: BP 120/76; PULSE 60; BMI 22.1
--- NOTE | 2023-10-31 12:39 | MHC.OFFVIS ---
Vital Signs 10/31/23 12:39 Height 5 ft 10 in Weight 154 lb 5.177 oz BMI 22.1 BP 120/76 Blood Pressure Location Lt brachial Position Sitting Pulse 60 Intake Visit Reasons: 6 mth f/up Intake Note: 6 month follow-up [facility] heart ok slowed down from knee surgery [employer] Service Advisor Required: No Allergies bee pollen [BEE STINGS] Allergy (Severe, Verified 05/18/23 09:57) Anaphylaxis Medication List - Last Reconciled 10/31/23 by Pacheco Crawford MD allopurinol 200 mg (2 x 100 mg) PO DAILY aspirin (Adult Low Dose Aspirin) 81 mg PO DAILY atorvastatin 80 mg PO BEDTIME indomethacin 25 mg PO TID PRN lisinopril 10 mg PO DAILY metoprolol succinate ER 100 mg PO DAILY prednisone 2 mg (2 x 1 mg) PO DAILY HPI Comments Details: Kevyn comes for follow-up. He recently underwent left knee replacement surgery. Doing well from that perspective. Having less pain and much improved mobility. Although he notices that he has slowed down and he is having issues with balance. Does not exercise much. He has been also losing weight and muscle mass. No cardiac symptoms. No prolonged palpitation irregular heartbeat. No orthopnea, PND, leg edema. No lightheadedness, syncope, ICD discharge. No exertional chest pain. Takes all his medications. [facility] Medical History Long-term current use of high risk medication other than anticoagulant COVID-19 vaccine series completed Arthritis Gout Polymyalgia rheumatica Elevated cholesterol LBBB (left bundle branch block) Biventricular ICD (implantable cardioverter-defibrillator) in place Cardiomyopathy CAD (coronary artery disease) Surgical History H/O colonoscopy Stented coronary artery Family History Father CVD (cardiovascular disease) Heart attack Mother Cancer Maternal Grandfather Heart attack Social History Household Members: Spouse Are you a primary care team assistant to a significant other at home: No Do you presently have visiting nurse or other home services: No Alcohol intake: current Alcohol intake frequency: a few times a month Patient Tobacco Use Status: Never used Tobacco Review of Systems Const Denies chills, Denies fatigue, Denies fever(s), Denies frequent falls, Denies weakness, Denies weight gain and Denies weight loss ENT Denies dizziness Card Denies chest pain, Denies leg edema, Denies lightheadedness, Denies palpitations, Denies dyspnea, Denies dyspnea on exertion, Denies orthopnea and Denies other (loss of consciousness) Resp Denies cough, Denies dyspnea and Denies dyspnea on exertion GI Denies hematochezia and Denies change in stool character Musc Denies abnormal gait, Denies muscle weakness, Denies numbness, Denies radiating pain into limb and Denies tingling Neuro Denies abnormal gait, Denies dizziness, Denies frequent falls, Denies numbness, Denies tingling and Denies weakness Endo Denies fatigue and Denies palpitations Physical Exam Vital Signs: Last Vital Signs Pulse 60 10/31/23 12:39 BP 120/76 10/31/23 12:39 BMI result Body Mass Index 22.1 Const General: cooperative, comfortable, no acute distress, alert, awake and well groomed Nutritional Appearance: thin Orientation/consciousness: patient oriented x3 Limitations: no limitations Neck Neck: Yes trachea midline, Yes supple and Yes no JVD Resp Effort & Inspection: normal respiratory effort Auscultation: clear to auscultation bilaterally Cardio Jugular venous distension: no JVD Palpation: normal PMI Rate: regular rate Rhythm: regular rhythm Heart sounds: S1 normal heart sound present and S2 normal heart sound present GI Auscultation: normal bowel sounds Skin General skin exam: no rashes or lesions noted Neuro General: patient oriented x3 and no focal motor deficits Extrem General: Yes no clubbing, cyanosis or edema Psych Appearance: grossly normal Office Procedures Cardiac Device Check Cardiac Device Check Details: Biventricular [facility] ICD in place. Programmed in DDDR at 60 beats per minute. Biventricular pacing 95% of time due to frequent PVCs. Atrial and ventricular sensing is adequate. Atrial and biventricular pacing thresholds are adequate and in auto capture mode. Pacing and shock lead impedance is stable. Battery life is at 4.2 years. No atrial fibrillation noted [id number] Cardiac Device Check, multi lead implantable defibrillator Procedure code (CPT) selection complete Assessment & Plan Assessment & Plan (1) Cardiomyopathy: Comment: nonischemic Code(s): I42.9 - Cardiomyopathy, unspecified Category: Medical Plan: Patient with [id number] LV systolic dysfunction secondary to cardiomyopathy, combination of ischemic and nonischemic cardiomyopathy. Has remained stable. No signs or symptoms of heart failure. Continue current neurohormonal modulation with metoprolol and lisinopril therapy. This was discussed with him. Signs and symptoms of heart failure were discussed. Will follow with echocardiogram in 6 months time. (2) CAD (coronary artery disease): Comment: Hx of CAD with LAD stent. Code(s): I25.10 - Atherosclerotic heart disease of [place] coronary artery without angina pectoris Category: Medical Plan: CAD with prior LAD stent without any symptoms of angina at current point time. Continue lifelong aspirin therapy. Continue high-intensity statin therapy. Continue aggressive blood pressure control which is currently well optimized. Target goal LDL less than 70 mg/dL. Blood pressure is currently well optimized. (3) Biventricular ICD (implantable cardioverter-defibrillator) in place: Comment: [facility] 2015 Code(s): Z95.810 - Presence of automatic (implantable) cardiac defibrillator Category: Medical Plan: Biventricular ICD in place for severe cardiomyopathy and left bundle-branch block. This has led to improvement in LV systolic function but not normalized with no development of heart failure syndrome. Will continue monitor remotely for heart failure as well as device function. Follow up in the clinic in 6 months time. (4) Ascending aortic aneurysm: Code(s): I71.21 - Aneurysm of the ascending aorta, without rupture Category: Medical Plan: Ascending aorta which is mildly to moderately enlarged. Follow-up echocardiogram in 5 months time. No interventions required at this point time. Continue medical therapy. Follow up in the clinic in 6 months time, sooner p.r.n.. Thank you for allowing me to partake in his care Coding Level of Care Code Est Pt Level 4 (35428) Diagnoses Cardiomyopathy I42.9 CAD (coronary artery disease) I25.10 Biventricular ICD (implantable cardioverter-defibrillator) in place Z95.810 Ascending aortic aneurysm I71.21 CPT Codes Cardiac Device Check - Cardiac Device 6: [id number] Cardiac Device Check, multi lead implantable defibrillator ([id number])
== END 2023-10-31 13:07 | disposition home or self-care (01) ==
PROVIDERS: PCP Internal Medicine; Visit Provider Internal Medicine Cardiovascular Disease
DX: I42.9 Cardiomyopathy, unspecified (principal); I25.10 Atherosclerotic heart disease of native coronary artery without angina pectoris; Z95.810 Presence of automatic (implantable) cardiac defibrillator; I71.21 Aneurysm of the ascending aorta, without rupture
CPT/HCPCS: 93284; 99214

== ENCOUNTER → 2023-10-31 12:32 | Outpatient (BNVA) | payer MEDICARE, OTHER, SELFPAY | PROVIDERS: PCP Internal Medicine; Visit Provider Internal Medicine Cardiovascular Disease | DX: I42.9 Cardiomyopathy, unspecified (principal); I25.10 Atherosclerotic heart disease of native coronary artery without angina pectoris; I71.21 Aneurysm of the ascending aorta, without rupture; Z45.02 Encounter for adjustment and management of automatic implantable cardiac defibrillator | CPT/HCPCS: 99212 ==

== ENCOUNTER 2024-01-04 09:37 | Outpatient (REF) | payer MEDICARE, OTHER, SELFPAY ==
[2024-01-04 10:04] LABS: MANUAL DIFF FLAG NO
[2024-01-04 10:26] LABS: Basophils Absolute Auto 0.1 X10*3/uL (0.0-0.2); Basophils Percent Auto 0.6 % (0-2); Eosinophils Absolute Auto 0.2 X10*3/uL (0.0-0.4); Eosinophils Percent Auto 1.7 % (0-4); Hematocrit 41.8 % (42.0-52.0); Hemoglobin 13.7 g/dl (14.0-18.0); Imm Gran Abs Auto 0.03 X10*3/uL (0.00-0.03); Imm Gran Pct Auto 0.3 % (0.0-0.4); Lymphocytes Absolute Auto 2.1 X10*3/uL (1.2-4.9); Lymphocytes Percent Auto 21.5 % (20-40); Mean Corpuscular HGB Conc 32.8 g/dl (31.0-36.0); Mean Corpuscular Hemoglobin 34.3 pg (27.0-33.0); Mean Corpuscular Volume 104.8 fL (80.0-98.0); Mean Platelet Volume 10.4 fL (9.4-12.4); Monocytes Absolute Auto 1.2 X10*3/uL (0.1-1.2); Neutrophils Absolute Auto 6.3 x10*3/uL (2.0-8.3); Neutrophils Percent Auto 63.9 % (45-73); Platelet Count 147 X10*3/uL (160-400); Red Blood Count 3.99 X10*6/uL (4.60-5.80); White Blood Count 9.9 X10*3/uL (4.8-10.8)
[2024-01-04 10:47] LABS: Alanine Aminotransferase 18 U/L (0-40); Albumin Level 3.9 g/dL (3.5-5.0); Alkaline Phosphatase 113 U/L (39-117); Anion Gap 10 (12-20); Aspartate Amino Transferase 22 U/L (5-37); Bilirubin Total 0.7 mg/dL (0.0-1.0); Blood Urea Nitrogen 25 mg/dL (9-16); C Reactive Protein 0.34 mg/dL (< or = 0.50); Calcium 8.9 mg/dL (8.4-10.2); Carbon Dioxide 27 mmol/L (22-29); Chloride 107 mmol/L (96-108); Estimated Glomerular Filt Rate > 60; Glucose Random 109 mg/dL (60-115); Sodium 140 mmol/L (135-145); Total Protein 6.6 g/dL (6.5-8.0)
[2024-01-04 11:05] LABS: Erythrocyte Sedimentation Rate 8 MM/HR (0-15)
== END 2024-01-04 09:38 | disposition home or self-care (01) ==
LOC: HO.LAB 09:37
PROVIDERS: PCP Internal Medicine; Visit Provider Nurse Practitioner Family
DX: M35.3 Polymyalgia rheumatica (principal); Z79.899 Other long term (current) drug therapy
CPT/HCPCS: 36415; 80053; 84550; 85025; 85652; 86140

== ENCOUNTER 2024-01-05 11:06 | Outpatient (AMB) | payer MEDICARE, OTHER, SELFPAY ==
[2024-01-05 11:13] VITALS: BP 120/58; PULSE 74; O2SAT 99; BMI 23.1
--- NOTE | 2024-01-05 11:13 | MHC.OFFVIS ---
Vital Signs 01/05/24 11:13 Height 5 ft 10 in Weight 161 lb BMI 23.1 BP 120/58 L Blood Pressure Location Lt brachial Position Sitting Pulse 74 Pulse Source Pulse Oximeter Pulse Oximetry (%) 99 Oxygen Delivery Method Room Air Intake Visit Reasons: PMR/LM Intake Note: Patient presents for follow up on PMR and lab review, he states he's had no problems with prednisone. He was last seen by Shavon Cohen on 05/18/23. 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 That time patient was stable and No changes were made to medication. Today patient is doing well. Denies an temporal headaches, jaw claudication, vision changes such as blurry vision or vision loss. No history of recurrent falls or fractures Rheumatologic History: PMR. Diagnosed at age 72. Has been on on chronic prednisone since then Gout. OA involving the knees Current Rheumatology Medication(s): Allopurinol 200mg daily Prednisone 2mg (1mg x 2) daily [facility] Medical History (Updated 01/05/24 @ 12:59 by Janna Cook MD) On allopurinol therapy intermediate (current) use of systemic steroids Long-term current use of high risk medication other than anticoagulant COVID-19 vaccine series completed Arthritis Gout Polymyalgia rheumatica Elevated cholesterol LBBB (left bundle branch block) Biventricular ICD (implantable cardioverter-defibrillator) in place Cardiomyopathy CAD (coronary artery disease) Surgical History H/O colonoscopy Stented coronary artery Family History Father CVD (cardiovascular disease) Heart attack Mother Cancer Maternal Grandfather Heart attack Social History Household Members: Spouse Are you a primary in home caregiver to a significant other at home: No Do you presently have visiting nurse or other home services: No Alcohol intake: current Alcohol intake frequency: a few times a month Patient Tobacco Use Status: Never used Tobacco Review of Systems Const Details: Review of Systems Constitutional: Denies fever, chills, weight loss ENT: Denies vision changes, eye pain or eye redness, dental caries, dry mouth GI: Denies nausea, vomiting, diarrhea, abdominal pain, change in BM Pulm: Denies SOB, THOMPSON, hemoptysis, wheezing Cards: Denies chest pain, palpitations Skin: Denies Raynaud's, rash, nail changes, photosensitivity, SOLID WASTE DISPOSAL MANAGER: Denies headaches, weakness, paresthesias, recurrent falls MSK: as per HPI All other systems reviewed and are unremarkable except noted above Physical Exam Vital Signs: Last Vital Signs Pulse 74 01/05/24 11:13 BP 120/58 L 01/05/24 11:13 Pulse Ox 99 01/05/24 11:13 Oxygen Delivery Method Room Air 01/05/24 11:13 BMI result Body Mass Index 23.1 Physical Examination CONSTITUITIONAL Patient alert and cooperative. Well appearing and in no apparent painful distress. Mild bitemporal wasting HEENT Conjunctiva and sclera clear. ?Pupils equal round and reactive to light. ?No lymphadenopathy. ?Normal dentition. No oral or nasal ulcers noted. No evidence of discoid rash to the yogi of ears CHEST/RESPIRATORY SYSTEM Normal respiratory effort and able to speak in complete sentences. ?Clear to auscultation bilaterally. ?No crackles, rales, rhonchi, wheezes heard. CARDIAC SYSTEM Regular rate and rhythm. ?S1 and S2 heard no murmurs. ?Radial pulses intact bilaterally MSK Hands: ?Good silver service waiter strength bilaterally - 5/5. ?Scattered Heberden's nodes noted. ?No synovitis noted to the MCPs, PIPs or DIPs. ?No tenderness to palpation of these joints. Wrists: ?Full range of motion at the wrists without pain. ?No tenderness to palpation or synovitis noted to the wrists. Elbows: Full range of motion without pain. No tenderness, weakness, swelling, increased warmth or erythema. Shoulders: Full range of motion without pain. No tenderness, weakness, swelling, increased warmth or erythema. Knees: Left knee slightly warm to palpation with firmness of the left calf. Full range of motion. Surgical scar over left knee seen. Right knee without any abnormalities. Ankles: Full range of motion. ?No tenderness, swelling, increased warmth or erythema.? Feet: ?Negative squeeze test. ?No tenderness to palpation or swelling of the MTPs. SKIN Skin intact without rashes. Results Reviewed Results Reviewed: Laboratory Tests 01/04/24 10:03 Sodium 140 Potassium 4.0 Chloride 107 Carbon Dioxide 27 BUN 25 H Creatinine 1.11 Uric Acid 6.0 AST 22 ALT 18 Alkaline Phosphatase 113 C-Reactive Protein 0.34 Laboratory Tests 01/04/24 10:03 WBC 9.9 RBC 3.99 L Hgb 13.7 L Hct 41.8 L Plt Count 147 L ESR 8 Assessment & Plan Assessment & Plan (1) Polymyalgia rheumatica: Comment: Diagnosed age 72s Prednisone monotherapy Code(s): M35.3 - Polymyalgia rheumatica Category: Medical Plan: #PMR Ideally would not have had him on prednisolone for 10 years. Based on the guidelines he should have been transitioned to either methotrexate or tocilizumab given his inability to taper off the prednisone. However at this time given his age I will not pursue DMARD therapy. Recommended him to taper prednisone to 2 mg alternating with 1 mg every other day. No signs or symptoms concerning for GCA at this time. Inflammatory markers done a couple days ago were within normal range (2) Gout: Comment: Non crystal proven on allopurinol Code(s): M10.9 - Gout, unspecified Category: Medical Qualifiers: Gout site: multiple sites Gout etiology: idiopathic Chronicity: chronic Presence of tophus: without tophus Qualified Code(s): M1A.09X0 - Idiopathic chronic gout, multiple sites, without tophus (tophi) Plan: #Non crystal proven gout No gout flares since last visit. Maintain on allopurinol therapy. (3) intermediate (current) use of systemic steroids: Code(s): Z79.52 - manager long term care (current) use of systemic steroids Category: Medical Plan: #Long-term Use of Steroids Discussed with patient the risks and benefits of steroid for managing the rheumatic condition Benefits include: - Reduced pain, improved mobility, increased participation in activities, and decreased progression of disease Risks include: - GI upset, potential ultrasound worsening or formation (especially in patients > 65 years old), elevated blood pressure/worsening hypertension, elevated blood sugar/worsening diabetes control, worsening of bone density, elevated lipids/worsening triglycerides, cataract formation, weight gain Recommended using proton pump inhibitors (PPIs) for the duration of steroid use to reduce the risk of gastric ulcers and vitamin-D daily to reduce the risk of osteoporosis Labs checked: ?A1c, T spot, hepatitis-B and C serologies Pneumocystis jiroveci prophylaxis: ?Patient with risk factors including steroids greater than 50 mg for more than 30 days, age greater than 60 years, and lung involvement from underlying rheumatic disease requires prophylaxis and will be given so (4) On allopurinol therapy: Code(s): Z79.899 - Other retirement (current) drug therapy Category: Medical Plan: #Long-term Current Use of Allopurinol Risks and benefits of allopurinol discussed with patient Benefits include decreased gout flares, remission of gout and reduction of tophi Risks include allopurinol hypersensitivity syndrome which is a severe cutaneous adverse reaction associated with allopurinol use particularly in patients who are HLA B*5801 positive, increased transaminases, GI upset including diarrhea, nausea and vomiting, and other dermatologic manifestations. Plan I spent 30 minutes reviewing the record and labs, seeing the patient, discussing the treatment plan and documenting in the medical record ? Orders: Orders XR DEXA axial skeleton Today M81.0 - Age-related osteoporosis without current pathological fracture, Z79.52 - intermediate (current) use of systemic steroids Comprehensive Met. Panel 6 Months M81.0 - Age-related osteoporosis without current pathological fracture, Z79.52 - intermediate (current) use of systemic steroids C Reactive Protein 6 Months M81.0 - Age-related osteoporosis without current pathological fracture, Z79.52 - intermediate (current) use of systemic steroids Erythrocyte Sedimentation Rate 6 Months M81.0 - Age-related osteoporosis without current pathological fracture, Z79.52 - intermediate (current) use of systemic steroids Medications: Refilled allopurinol 200 mg (2 x 100 mg) PO DAILY 180 tabs 0RF M10.9 - Gout, unspecified prednisone 2 mg (2 x 1 mg) PO DAILY 120 tabs 0RF M35.3 - Polymyalgia rheumatica Coding Level of Care Code Est Pt Level 4 (05151) Complex EM visit Add On G2211 Diagnoses Polymyalgia rheumatica M35.3 Idiopathic chronic gout of multiple sites without tophus M1A.09X0 Gout site: multiple sites Gout etiology: idiopathic Chronicity: chronic Presence of tophus: without tophus intermediate (current) use of systemic steroids Z79.52 On allopurinol therapy Z79.899
== END 2024-01-05 12:58 | disposition home or self-care (01) ==
PROVIDERS: PCP Internal Medicine; Visit Provider Student in an Organized Health Care Education/Training Program
DX: M35.3 Polymyalgia rheumatica (principal); M1A.09X0 Idiopathic chronic gout, multiple sites, without tophus (tophi); Z79.52 Long term (current) use of systemic steroids; Z79.899 Other long term (current) drug therapy
CPT/HCPCS: 99214; G2211

== ENCOUNTER → 2024-01-05 11:06 | Outpatient (BNVA) | payer MEDICARE, OTHER, SELFPAY | PROVIDERS: PCP Internal Medicine; Visit Provider Student in an Organized Health Care Education/Training Program | DX: M1A.09X0 Idiopathic chronic gout, multiple sites, without tophus (tophi) (principal); M35.3 Polymyalgia rheumatica; Z79.52 Long term (current) use of systemic steroids; Z79.899 Other long term (current) drug therapy | CPT/HCPCS: 99212 ==

== ENCOUNTER → 2024-01-22 23:59 | Outpatient (BNV) | payer MEDICARE, OTHER, SELFPAY ==
--- NOTE | 2024-01-30 16:24 | A.OFFVIS_ITS ---
Intake Visit Reasons: Remote ICD Check- [facility] Allergies bee pollen [BEE STINGS] Allergy (Severe, Verified 01/05/24 11:17) Anaphylaxis [facility] Medical History (Updated 01/05/24 @ 12:59 by Janna Cook MD) On allopurinol therapy [facility] (current) use of systemic steroids Long-term current use of high risk medication other than anticoagulant COVID-19 vaccine series completed Arthritis Gout Polymyalgia rheumatica Elevated cholesterol LBBB (left bundle branch block) Biventricular ICD (implantable cardioverter-defibrillator) in place Cardiomyopathy CAD (coronary artery disease) Surgical History H/O colonoscopy Stented coronary artery Family History Father CVD (cardiovascular disease) Heart attack Mother Cancer Maternal Grandfather Heart attack Social History Household Members: Spouse Are you a primary child care development specialist to a significant other at home: No Do you presently have visiting nurse or other home services: No Alcohol intake: current Alcohol intake frequency: a few times a month Patient Tobacco Use Status: Never used Tobacco Office Procedures Cardiac Device Check Cardiac Device Check Details: Remote ICD report generated 01/22/2024. ICD function is adequate although suboptimal Bi V pacing noted at 94% most likely due to frequent PVCs [id number] Cardiac Interrogation, implant defibrillator w/interim Procedure code (CPT) selection complete Assessment & Plan Assessment & Plan (1) Biventricular ICD (implantable cardioverter-defibrillator) in place: Comment: [facility] 2015 Code(s): Z95.810 - Presence of automatic (implantable) cardiac defibrillator Category: Medical Plan: See above Coding Level of Care Code Procedure Only Diagnoses Biventricular ICD (implantable cardioverter-defibrillator) in place Z95.810 CPT Codes Cardiac Device Check - Cardiac Device 13: [id number] Cardiac Interrogation, implant defibrillator w/interim ([id number])
== END ==
PROVIDERS: PCP Internal Medicine; Visit Provider Internal Medicine Cardiovascular Disease
DX: Z45.02 Encounter for adjustment and management of automatic implantable cardiac defibrillator (principal)
CPT/HCPCS: 93295

== ENCOUNTER 2024-02-09 09:54 | Outpatient (REF) | payer MEDICARE, OTHER, SELFPAY ==
--- NOTE | ~2024-02-09 | MM_ITS ---
EXAMINATION: BONE DENSITOMETRY CLINICAL INDICATION: Long-term, current, use of systemic steroids. COMPARISON: This is the patient's baseline examination. TECHNIQUE: Using a Power [employer] DXA System (software version: 13.1) manufactured by [employer], dual-energy x-ray absorptiometry was performed of the lumbar spine and left hip. The images are of good technical quality. Summary results are attached. FINDINGS: LEFT FEMUR, NECK: BMD 0.938 g/cm2, Z-score 0.7, T-score -1.0, normal. LEFT FEMUR, TOTAL: BMD 0.836 g/cm2, Z-score -0.5, T-score -1.8, osteopenia. AP SPINE L1-L2 (excluding L3 and L4): The data of L1-L4 has been changed to exclude the L3 and L4 vertebral bodies, because demonstrated changes at these levels may cause overestimation of lumbar spine density. BMD 1.354 g/cm2, Z-score 2.2, T-score 1.3, normal. IDENTIFIED RISK FACTORS: Low calcium intake, glucocorticoids. HISTORY OF FRACTURE: None listed. MEDICATIONS: None listed. MM/XR DEXA axial skeleton IMPRESSION: 1. DIAGNOSIS: Osteopenia based on the lowest T-score value of -1.8 in the total femur applying World Health Organization criteria. 2. 10-YEAR FRACTURE RISK PREDICTION, FRAX: Major osteoporotic fracture (clinical spine, forearm, hip or shoulder) 8.7%. Hip fracture 3.3%. 3. Treatment Recommendations: NOF guidelines recommend consideration for treatment in postmenopausal women and men age 50 and older presenting with the following: -A hip or vertebral (clinical or morphometric) fracture. -T-score less than or equal to -2.5 at the femoral neck or spine after appropriate evaluation to exclude secondary causes. -Low bone mass at the hip or spine and a 10-year fracture probability by FRAX of greater than or equal to 3% for hip fracture or greater than or equal to 20% for major osteoporotic fracture based on the [place] adapted WHO algorithm. 4. Other Recommendations: All treatment decisions require clinical judgment and consideration of individual patient factors, including patient preferences, comorbidities, previous drug use, risk factors not captured in the FRAX model (e.g. frailty, falls, vitamin D deficiency, increased bone turnover, interval significant decline in bone density) and possible under or overestimation of fracture risk by FRAX. Additional medical evaluation for secondary cause of low bone mineral density may be appropriate. FUTURE SCAN RECOMMENDATION: People with diagnosed cases of osteoporosis or at high risk for fracture should have regular bone mineral density tests. For patients eligible for Medicare, routine testing is allowed once every 2 years. The testing frequency can be increased to one year for patients who have rapidly progressing disease, those who are receiving or discontinuing medical therapy to restore bone mass, or have additional risk factors. Electronically signed by: Frank Lopez MD 02/09/2024 02:00 PM SEAMUS NAYAK
== END 2024-02-09 09:55 | disposition home or self-care (01) ==
LOC: HO.MAMMO 09:54
PROVIDERS: Visit Provider Student in an Organized Health Care Education/Training Program
DX: M81.0 Age-related osteoporosis without current pathological fracture (principal); Z79.52 Long term (current) use of systemic steroids
CPT/HCPCS: 77080

== ENCOUNTER → 2024-04-03 10:00 | Outpatient (REF) | payer MEDICARE, OTHER, SELFPAY ==
--- NOTE | 2024-04-03 10:04 | CA_ITS ---
Transthoracic Echocardiogram Patient (Last, First, Middle): Angelo Maurer, Gender: Male Date of : 1940 Age: 83 Procedure Date: 04/03/2024 Procedure Type: Transthoracic Echocardiogram Location: OP Height: 177.8 cm Weight: 73.48 kg BSA: 1.91 m2 Heart Rate: bpm BP: 122 / 60 mmHg Cath Lab Technologist: Referring MD: Pacheco Crawford MD Cooking Teacher: Pacheco Crawford MD Symptoms: I71.21 - Aneurysm of the ascending aorta, without rupture Study Quality: Good ECG Rhythm: Ventricular paced rhythm with PVCs Conclusions: - 1. Rikz-md-ptbezhhv LV systolic dysfunction with LVEF of 40-45% with grade 1 diastolic dysfunction 2. Mildly dilated left atrium 3. Mild mitral regurgitation 4. Normal RV systolic pressure 5. Odvu-cv-zsmmlmkl dilatation of the ascending aorta 6. No pericardial effusion Findings Left Ventricle Normal left ventricular cavity size. There is normal left ventricular wall thickness. The left ventricular systolic function is mild to moderately decreased. The visually estimated ejection fraction is between 40-45%. Spectral Doppler is indicative of an impaired relaxation filling pattern. E/E prime ratio is <8, consistent with normal filling pressures. Evidence suggests grade I (mild) diastolic dysfunction. Right Ventricle Normal right ventricular cavity size. There is normal right ventricular systolic function. There is an ICD wire seen in the right ventricle. Atria The left atrium is mildly dilated. There is no evidence of interatrial shunt. The right atrium is mildly dilated. A pacemaker wire is identified in the right atrium. Aortic Valve There is mild calcification of the aortic valve. There is no aortic valve stenosis. There is trace (trivial) aortic valve regurgitation. Mitral Valve There is mild anterior and posterior mitral leaflet thickening. There is mild mitral valve regurgitation. There is no mitral valve stenosis. Pulmonic Valve The pulmonic valve is likely normal. Tricuspid Valve Likely normal tricuspid valve structure and function. There is trace tricuspid valve regurgitation. The right ventricular systolic pressure is normal. The right ventricular systolic pressure is 20 mmHg. Normal right atrial pressure. There is no evidence of pulmonary hypertension. Great Vessels The pulmonary artery was not well visualized. There is mild dilatation of the ascending aorta measuring 4.30 cm. Venous The inferior vena cava is normal in size and collapses greater than 50% with inspiration. Pericardium/Pleural There is no evidence of pericardial effusion. Prior Study Comparison No significant change compared to prior study dated: 03/23/2023. Measurements 2D Linear Measurements IVSd: 1.03 0.6-0.9/0.6-1.0 cm LVIDd: 5.28 3.9-5.3/4.2-5.9 cm LVIDd Index: 2.76 2.4-3.2/2.2-3.1 cm/m2 LVIDs: 3.46 2.0-3.6 cm LVPWd: 1.02 0.7-1.1 cm Ao Root: 3.20 2.1-3.5 cm LA Diam: 4.30 2.7-3.8/3.0-4.0 cm LAIDs Index: 2.25 1.5-2.3 cm/m2 LV Mass: 256.50 67-162/88-224 g LV Mass Index: 134.29 43-95/49-115 g/m2 LVOT Diam: 2.30 3.0+(-)1.3 cm 2D Systolic Function EF 4C: 42.00 >55% EF 2C: 40.80 >55% EF BiP: 40.10 >55% Mitral Valve MV Pk E: 0.41 MV PK A: 0.74 MV Decel Time: 302.00 E/A: 0.60 E'Lateral: 4.46 E'Medial: 5.44 E/E' Med: 7.50 E/E' Lat: 9.10 PHT: 89.00 MVA PHT: 2.47 Decel Cheatham: 1.35 LVOT LVOT Pk Bertrand: 0.76 LVOT Mn Bertrand: 0.52 LVOT VTI: 0.18 LVOT Pk Grad: 2.00 LVOT Mn Grad: 1.00 LVOT Diam: 2.30 LVOT Area: 4.15 Diastolic Function MV Pk E: 0.41 MV Pk A: 0.74 E/A: 0.60 E'Medial: 5.44 E/E' Med: 7.50 E' Laterial: 4.46 E/E' Lat: 9.10 Right Ventricle TAPSE (mm): 22.00 TVS' Bertrand: 9.00 Tricuspid Valve TR Pk Bertrand: 2.09 TR Pk Grad: 17.00 RA Press: 3.00 RVSP: 20.00 Great Vessels Aorta Ao Root-2D: 3.20 2.0-3.7 cm Ao Asc: 4.40 2.1-3.4 cm Pulmonary Valve PV Pk Bertrand: 1.04 Peak PV Grad: 4.00 Updated in Other Vendor System with Status of Final Pacheco Crawford MD electronically signed on 04/04/2024 12:41:53 PM with status of Final
--- OUTSIDE RECORDS SUMMARY | 2024-04-03 11:48 | XMS_ITS | Clinical Summary ---
Author Organization [facility] Address [address] [place] [address] Care Team Providers Care Treasury Management Sales Consultant Name Role Phone Unavailable Primary Care Provider Unavailabl e Allergies Active Allergy Reactions Criticality Noted Date Comments Bee Venom Other 10/03/2012 Medications Medication Sig Dispensed Refills Start Date End Date Status allopurinol (ZYLOPRIM) 100 MG tablet Take 200 mg by mouth daily. 3 06/05/2017 Active atorvastatin (LIPITOR) tablet 80 mg TAKE 1 TABLET AT BEDTIME 3 05/14/2017 Active lisinopril (PRINIVIL,ZESTRIL) tablet 10 mg TAKE 1 TABLET BY MOUTH EVERY DAY 1 05/23/2017 Active metoprolol succinate (TOPROL-XL) 24 hr tablet 100 mg TAKE 1 TABLET BY MOUTH EVERY DAY DAILY ORALLY 90 DAYS 0 06/27/2017 Active aspirin 81 MG chewable tablet Chew 81 mg by mouth daily. 0 Active indomethacin (INDOCIN) 25 MG capsule Take 25 mg by mouth daily as needed. 0 Active predniSONE (DELTASONE) 1 MG tablet Take 1 mg by mouth daily. 0 01/25/2018 Active digoxin (LANOXIN) 125 MCG tablet Take 125 mcg by mouth daily. 0 01/07/2020 Active ergocalciferol (VITAMIN D2) capsule 76177 units ergocalciferol (vitamin D2) 1,250 mcg (50,000 unit) capsule 0 Active Active Problems Problem Noted Date Diagnosed Date Abnormal colonoscopy 07/04/2016 Overview: 2001Tubular adenoma, 2007, neg, 07/04/2016Tubular adenoma, TIC, Hem Dr Mosley PMR (polymyalgia rheumatica) 02/21/2012 Overview: ESR 59, CRP 2.24 07/2014 ESR 6, CRP 0.08 Dr Mims Elevated prostate specific antigen (PSA) 007 Overview: Overview: Dr. Miner- no biopsy warranted OA (osteoarthritis) of knee Overview: LA Moderate severe OA, RT Mild OA, Rt shoulder Mixed hyperlipidemia Overview: Goal <70 HTN (hypertension) Elevated PSA Overview: No Bx recommended Dr Miner NSVT (nonsustained ventricular tachycardia) Overview: 6 beats event monitor Overview: Event monitor with 6 beat run, sees Dr. Yvette Reynaga Overview: MTP LBBB (left bundle branch block) Ischemia of heart, chronic Overview: 12/2002 50% LAD, 02/2014 BEENA LAD, 04/2014 Bivent ICD Cardiomyopathy Overview: moderate severe LV syst dyfunction 01/2014 EF 35-40%, post stent EF unchanged JELANI added, ECHO 01/2016 EF 45-50% Elevated fasting blood sugar Immunizations Name Administration Dates Next Due Covid-19 (Moderna 12+) 100mc g/0.5mL dosage 05/02/2020,04/05/2020 Influenza Quad (Afluria/Fluz one) 0.5mL >=6mon Vial (SD-IIV4) 11/21/2016 Influenza Trivalent (Fluzone High Dose) 0.7 mL (65yrs &>) 11/21/2019,11/09/2017 Influenza Trivalent (Fluzone /Afluria) 5.0mL Multi-dose Vial 12/17/2014,12/23/2013,01/29/2013,01/04,01/18/2011,12/04/2009 Pneumococcal Conjugate PCV13 07/04/2017 Pneumococcal Polysaccharide PPSV23 03/03/2015,,07/14/2006 TB Skin Test (TST-PPD) 01/23/2003 Td (Adult) Decavac 12/04/2009 Td (Adult), Unspecified formulation 03/03/2015,1 Tdap 12/11/2009 Family History Medical History Relation Name Comments Other Father Arthritis Maternal Grandfather Breast cancer Mother Arthritis Paternal Grandfather No Sig Med Hx Sister Relation Name Status Comments Daughter 1 Alive Daughter 2 Alive Father Maternal Grandfather Mother Paternal Grandfather Sister Alive Social History Tobacco Use Types Packs/Day Years Used Date Smoking Tobacco: Never Smokeless Tobacco: Never Alcohol Use Standard Drinks/Week Comments Yes 3 (1 standard drink = 0.6 oz pur e alcohol) rare Sex and Gender Information Value Date Recorded Sex Assigned at Male 01/14/2020 10:53 AM EST Gender Identity Male 01/14/2020 10:53 AM EST Sexual Orientation Straight 01/14/2020 10 :53 AM EST Last Filed Vital Signs Vital Sign Reading Time Taken Comments Blood Pressure 130/74 03/01/2018 9:00 AM EST Pulse 84 03/01/2018 9:00 AM EST Temperature 36.8 ??C (98.2 ??F) 03/01/2018 9:00 AM ES T Respiratory Rate 16 03/01/2018 9:00 AM EST Oxygen Saturation 96% 03/01/2018 9:00 AM EST Inhaled Oxygen Concentration - - Weight 80.3 kg (177 lb) 03/01/2018 9:00 AM EST Height 177.2 cm (5' 9.75 ) 03/01/2018 9:00 AM ES T Body Mass Index 25.58 03/01/2018 9:00 AM EST Plan of Treatment Health Maintenance Due Date Last Done Comments Shingrix-Zoster Vaccine (1 of 2) 1992 RSV Adult > 60+ Yrs or (1 - 1-dose 75+ series) 2017 Depression Screening 01/13/2021 01/14/2020, 01/14/2020, 01/14/2020, Additional history exists Fall Risk Assessment 01/13/2021 01/14/2020, 01/14/2020, 01/14/2020, Additional history exists Preventative Health Evaluation 01/13/2021 01/14/2020, 01/14/2020, 11/09/2017 COVID-19 Vaccine ( season) 2023 05/02/2020, 04/05/2020 Influenza Vaccine (#1) 2023 , 11/21/2019, 11/09/2017, Additional history exists DTap / Tdap / Td (3 - Td or Tdap) 03/03/2025 03/03/2015, 12/11/2009, 12/04/2009, Additional history exists Pneumococcal Vaccine Completed 07/04/2017, 03/03/2015, 07/10/2007, Additional history exists Hepatitis B Vaccines Aged Out No long er eligible based on patient's age to complete this topic RSV Ped < 20 months Aged Out No longe r eligible based on patient's age to complete this topic
== END ==
LOC: HO.CARD 10:00
PROVIDERS: PCP Internal Medicine; Visit Provider Internal Medicine Cardiovascular Disease
DX: I71.21 Aneurysm of the ascending aorta, without rupture (principal)
CPT/HCPCS: 93306

== ENCOUNTER → 2024-04-03 10:04 | Outpatient (BNV) | payer MEDICARE, OTHER, SELFPAY | PROVIDERS: PCP Internal Medicine; Visit Provider Internal Medicine Cardiovascular Disease | DX: I35.8 Other nonrheumatic aortic valve disorders (principal); I35.1 Nonrheumatic aortic (valve) insufficiency; I34.0 Nonrheumatic mitral (valve) insufficiency | CPT/HCPCS: 93306 ==

== ENCOUNTER → 2024-04-22 23:59 | Outpatient (BNV) | payer MEDICARE, OTHER, SELFPAY ==
--- NOTE | 2024-04-24 17:48 | MHC.OFFVIS ---
Intake Visit Reasons: Remote ICD Check- [facility] Allergies bee pollen [BEE STINGS] Allergy (Severe, Verified 01/05/24 11:17) Anaphylaxis [facility] Medical History (Updated 01/05/24 @ 12:59 by Janna Cook MD) On allopurinol therapy retirement (current) use of systemic steroids Long-term current use of high risk medication other than anticoagulant COVID-19 vaccine series completed Arthritis Gout Polymyalgia rheumatica Elevated cholesterol LBBB (left bundle branch block) Biventricular ICD (implantable cardioverter-defibrillator) in place Cardiomyopathy CAD (coronary artery disease) Surgical History H/O colonoscopy Stented coronary artery Family History Father CVD (cardiovascular disease) Heart attack Mother Cancer Maternal Grandfather Heart attack Social History Household Members: Spouse Are you a primary managed care coordinator to a significant other at home: No Do you presently have visiting nurse or other home services: No Alcohol intake: current Alcohol intake frequency: a few times a month Patient Tobacco Use Status: Never used Tobacco Office Procedures Cardiac Device Check Cardiac Device Check Details: Remote ICD report generated 04/22/2024. ICD function is adequate. Biventricular pacing 94% of time which is suboptimal [id number] Cardiac Interrogation, implant defibrillator w/interim Procedure code (CPT) selection complete Assessment & Plan Assessment & Plan (1) Biventricular ICD (implantable cardioverter-defibrillator) in place: Comment: [facility] 2015 Code(s): Z95.810 - Presence of automatic (implantable) cardiac defibrillator Category: Medical Plan: See above Coding Level of Care Code Procedure Only Diagnoses Biventricular ICD (implantable cardioverter-defibrillator) in place Z95.810 CPT Codes Cardiac Device Check - Cardiac Device 13: [id number] Cardiac Interrogation, implant defibrillator w/interim ([id number])
== END ==
PROVIDERS: PCP Internal Medicine; Visit Provider Internal Medicine Cardiovascular Disease
DX: Z45.02 Encounter for adjustment and management of automatic implantable cardiac defibrillator (principal)
CPT/HCPCS: 93295

== ENCOUNTER 2024-05-06 08:47 | Outpatient (AMB) | payer MEDICARE, OTHER, SELFPAY ==
--- NOTE | 2024-05-06 08:51 | MHC.OFFVIS ---
Vital Signs 05/06/24 08:53 Height 5 ft 10 in Weight 165 lb 5.547 oz BMI 23.7 BP 120/70 Blood Pressure Location Lt brachial Position Sitting Pulse 67 Intake Visit Reasons: 6 mth fu after echo Intake Note: 6 month follow-up after echo with [facility] and ekg feeling good Surveyor'S Assistant Required: No Allergies bee pollen [BEE STINGS] Allergy (Severe, Verified 01/05/24 11:17) Anaphylaxis Medication List - Last Reconciled 05/06/24 by Pacheco Crawford MD allopurinol 200 mg (2 x 100 mg) PO DAILY 90 days aspirin (Adult Low Dose Aspirin) 81 mg PO DAILY atorvastatin 80 mg PO BEDTIME indomethacin 25 mg PO TID PRN lisinopril 10 mg PO DAILY metoprolol succinate ER 100 mg PO DAILY prednisone 2 mg (2 x 1 mg) PO DAILY HPI Comments Details: Kevyn comes for follow-up. He has been doing very well from cardiac perspective. He denies any cardiac symptoms. He remains active and denies any exertional chest pain or shortness of breath. No orthopnea, PND, leg edema. Most recent echocardiogram showed LVEF of 40-45% which has remained stable with vlnu-vq-cnzmbhhw ascending aortic enlargement. Takes all his medications. Blood pressures been well controlled. No prolonged palpitation irregular heartbeat. No syncope or ICD discharge. He says that he does have some balance issues [facility] Medical History On allopurinol therapy custodial (current) use of systemic steroids Long-term current use of high risk medication other than anticoagulant COVID-19 vaccine series completed Arthritis Gout Polymyalgia rheumatica Elevated cholesterol LBBB (left bundle branch block) Biventricular ICD (implantable cardioverter-defibrillator) in place Cardiomyopathy CAD (coronary artery disease) Surgical History H/O colonoscopy Stented coronary artery Family History Father CVD (cardiovascular disease) Heart attack Mother Cancer Maternal Grandfather Heart attack Social History Household Members: Spouse Are you a primary long term care pharmacist to a significant other at home: No Do you presently have visiting nurse or other home services: No Alcohol intake: current Alcohol intake frequency: a few times a month Patient Tobacco Use Status: Never used Tobacco Review of Systems Const Denies chills, Denies fatigue, Denies fever(s), Denies frequent falls, Denies weakness, Denies weight gain and Denies weight loss ENT Denies dizziness Card Denies chest pain, Denies leg edema, Denies lightheadedness, Denies palpitations, Denies dyspnea, Denies dyspnea on exertion, Denies orthopnea and Denies other (loss of consciousness) Resp Denies cough, Denies dyspnea and Denies dyspnea on exertion GI Denies hematochezia and Denies change in stool character Musc Denies abnormal gait, Denies muscle weakness, Denies numbness, Denies radiating pain into limb and Denies tingling Neuro Denies abnormal gait, Denies dizziness, Denies frequent falls, Denies numbness, Denies tingling and Denies weakness Endo Denies fatigue and Denies palpitations Physical Exam Vital Signs: Last Vital Signs Pulse 67 05/06/24 08:53 BP 120/70 05/06/24 08:53 BMI result Body Mass Index 23.7 Const General: cooperative, comfortable, no acute distress, alert, awake and well groomed Nutritional Appearance: thin and other (Frail) Orientation/consciousness: patient oriented x3 Limitations: no limitations Neck Neck: Yes trachea midline, Yes supple and Yes no JVD Resp Effort & Inspection: normal respiratory effort Auscultation: clear to auscultation bilaterally Cardio Jugular venous distension: no JVD Palpation: normal PMI Rate: regular rate Rhythm: regular rhythm Heart sounds: S1 normal heart sound present and S2 normal heart sound present GI Auscultation: normal bowel sounds Skin General skin exam: no rashes or lesions noted Neuro General: patient oriented x3 and no focal motor deficits Extrem General: Yes no clubbing, cyanosis or edema Psych Appearance: grossly normal Office Procedures Cardiac Device Check Cardiac Device Check Details: Biventricular [facility] ICD in place. Suboptimal Bi V pacing due to PVCs at 94%. Atrial and biventricular pacing thresholds adequate. Atrial ventricular sensing is adequate. No arrhythmias noted. Pacing and shock lead impedance is stable. Battery life is at 3.7 years [id number] Cardiac Device Check, multi lead implantable defibrillator Procedure code (CPT) selection complete EKG Details: EKG shows atrially sensed, ventricularly paced rhythm with Bi V pacing [id number], Complete Assessment & Plan Assessment & Plan (1) Cardiomyopathy: Comment: nonischemic Code(s): I42.9 - Cardiomyopathy, unspecified Category: Medical Plan: Cardiomyopathy with mntx-vm-zacdrrqu LV systolic dysfunction current neurohormonal modulation. No signs or symptoms of heart failure. Continue current neurohormonal modulation with metoprolol and lisinopril. Signs and symptoms of heart failure were discussed. Avoidance of salt loading was discussed advised to call me with any new symptoms. (2) CAD (coronary artery disease): Comment: Hx of CAD with LAD stent. Code(s): I25.10 - Atherosclerotic heart disease of [place] coronary artery without angina pectoris Category: Medical Plan: CAD with prior LAD stent with no current symptoms of angina. Continue low-dose aspirin therapy for life. Continue high-intensity statin therapy. Target LDL less than 70 mg/dL. Advised lipid panel at least on annual basis. Blood pressure is currently well optimized importance of good blood pressure control was discussed. (3) Biventricular ICD (implantable cardioverter-defibrillator) in place: Comment: [facility] 2014 Code(s): Z95.810 - Presence of automatic (implantable) cardiac defibrillator Category: Medical Plan: Bi V ICD in place for resynchronization. Suboptimal resynchronization due to frequent PVCs. Overall otherwise Bi V function is adequate. Will follow remotely for heart failure as well as device function. (4) Ascending aortic aneurysm: Code(s): I71.21 - Aneurysm of the ascending aorta, without rupture Category: Medical Plan: Eiuz-sg-xnwhvfrg ascending aortic aneurysm. Currently remained stable. Continue aggressive blood pressure control. Advised to avoid sudden strenuous isometric exercise. Continue follow-up echocardiogram on a yearly basis. Will follow up in the clinic in 6 months time, sooner p.r.n.. Thank you for allowing me to partake in his care Coding Level of Care Code Est Pt Level 4 (56161) Complex EM visit Add On G2211 Diagnoses Cardiomyopathy I42.9 CAD (coronary artery disease) I25.10 Biventricular ICD (implantable cardioverter-defibrillator) in place Z95.810 Ascending aortic aneurysm I71.21 CPT Codes Cardiac Device Check - Cardiac Device 6: [id number]-[id number] Cardiac Device Check, multi lead implantable defibrillator ([id number]) EKG - CPT: 05678-Iqhnfaykklprdmypf, Complete ([id number])
[2024-05-06 08:53] VITALS: BP 120/70; PULSE 67; BMI 23.7
--- OUTSIDE RECORDS SUMMARY | 2024-05-06 09:06 | XMS_ITS | Clinical Summary ---
Author Organization [facility] Address [address] [place] [address] Care Team Providers Care Adhesive Bonding Machine Operator Name Role Phone Unavailable Primary Care Provider [...] 0 01/07/2020 Active ergocalciferol (VITAMIN D2) capsule 07184 units ergocalciferol (vitamin D2) 1,250 mcg (50,000 [...]
== END 2024-05-06 09:33 | disposition home or self-care (01) ==
LOC: HO.HCS 08:47
PROVIDERS: PCP Internal Medicine; Visit Provider Internal Medicine Cardiovascular Disease
DX: I42.9 Cardiomyopathy, unspecified (principal); I25.10 Atherosclerotic heart disease of native coronary artery without angina pectoris; Z95.810 Presence of automatic (implantable) cardiac defibrillator; I71.21 Aneurysm of the ascending aorta, without rupture
CPT/HCPCS: 93010; 93284; 99214; G2211

== ENCOUNTER → 2024-05-06 08:47 | Outpatient (BNVA) | payer MEDICARE, OTHER, SELFPAY | PROVIDERS: PCP Internal Medicine; Visit Provider Internal Medicine Cardiovascular Disease | DX: Z45.02 Encounter for adjustment and management of automatic implantable cardiac defibrillator (principal); I42.9 Cardiomyopathy, unspecified; I25.10 Atherosclerotic heart disease of native coronary artery without angina pectoris; I71.21 Aneurysm of the ascending aorta, without rupture | CPT/HCPCS: 93005; 99212 ==

== ENCOUNTER 2024-07-08 15:03 | Outpatient (REF) | payer MEDICARE, OTHER, SELFPAY ==
--- OUTSIDE RECORDS SUMMARY | 2024-07-08 15:07 | XMS_ITS | Clinical Summary ---
Author Organization [address] Address [address] [place] [phone] Phone Care Team Providers Care Civil Engineering Designer Name Role Phone Keith Yusuf MD Primary Care Provider [phone] Encounters Date Type Department Care Team Description 06/27/2024 Telephone Internal Medicine - [address] [phone] Cassie De Leon MA Medicare Annual Wellness Visit Subsequent (AWV DUE after 06/22/2024) from Last 3 Months Surgical History Surgery Date Site/Laterality Comments TONSILLECTOMY PROCEDURE: HISTORICAL TONSILLECTOMY CARDIAC CATHETERIZATION 12/23 PROCEDURE: HISTORICAL CARDIAC CATH OTHER SURGICAL HISTORY 05/04 PROCEDURE: AICD, DUAL CHAMBER Medical History Medical History Date Comments Gout, unspecified DX:Gout, unspe cified Pure hypercholesterolemia DX:Pur e hypercholesterolemia Hypertension 12/03/2008 DX:Hypertension Chronic ischemic heart disea se, unspecified 06/17/2005 DX:Chronic ischemic heart di sease, unspecified; COMMENT: stented 2014, AICD April 2014 ICD (implantable cardioverter-defibrillator) in place 04/19/2021 DX:ICD (implantab le cardioverter-defibrillator) in place Abnormal chest x-ray 01/31/2019 DX:Abnormal chest x-ray Bee sting allergy 10/03/2012 DX:Bee sting a llergy Cardiomyopathy (CMS/HCC V24, CMS/HCC V28) 02/21/2014 DX:Cardiomyopathy (HCC); COM MENT: EF 35-40%, scheduled for cardiac cath, nonischemic because no improvement in EF post stent of LAD, started on lisinopril 2.[address] Crawford 02/18/14 Chronic ischemic heart disease 06/17/2005 D X:Chronic ischemic heart disease; COMMENT: 50% LAD by cath- 12/23' Stented LAD 2014 AICD - April 2014 Elevated prostate specific a ntigen (PSA) 08/16/2006 DX:Elevated prostate specifi c antigen (PSA); COMMENT: Dr. 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 DX:Idiopathic chronic gout w ithout tophus Metabolic syndrome 05/14/2010 DX:Metabolic syndrome Osteoarthritis, knee 04/18/2012 DX:Osteoart hritis, knee Polymyalgia rheumatica ([facility]/HCC V24) 04/24/2012 DX:Polymyalgia rheumatica ([facility]); COMMENT: Onset - February 2012; ESR 59, CRP 2.24 Arthritis 04/19/2021 DX:Arthritis Family History Medical History Relation Name Comments Heart attack Father 49yo Arthritis Maternal Grandfather Breast cancer Mother Arthritis Paternal Grandfather Blindness Neg Hx Cataracts Neg Hx Glaucoma Neg Hx Macular degeneration Neg Hx Strabismus Neg Hx Relation Name Status Comments Daughter Alive 1 daughter age 36, good health ( defect) Father (Age 49) [place] Maternal Grandfather unknown Maternal Grandmother (Age 90's) old age Mother (Age 47) breast can cer Paternal Grandfather unknown Paternal Grandmother unknown Sister Alive 1 sister age 61 , in good health Social History Tobacco Use Types Packs/Day Years Used Date Smoking Tobacco: Never Smokeless Tobacco: Never Alcohol Use Standard Drinks/Week Comments Yes 0 (1 standard drink = 0.6 oz pur e alcohol) Sex and Gender Information Value Date Recorded Sex Assigned at Not on file Legal Sex Male 12:51 AM EST Gender Identity Not on file Sexual Orientation Not on file Obstetrics History Last Filed Vital Signs Vital Sign Reading Time Taken Comments Blood Pressure 115/65 06/23/2023 11:15 AM EDT Pulse 66 06/23/2023 11:15 AM EDT Temperature - - Respiratory Rate - - Oxygen Saturation - - Inhaled Oxygen Concentration - - Weight 74.5 kg (164 lb 3.2 oz) 06/23/2023 11:15 AM EDT Height 175.3 cm (5' 9 ) 06/23/2023 11:15 AM EDT Body Mass Index 24.25 06/23/2023 11:15 AM EDT Plan of Treatment Upcoming Encounters Date Type Department Care Team (Late st Contact Info) Description 07/11/2024 9:00 AM EDT Telemedicine Internal Medicine - [address] [place] [phone] 10/29/2024 9:30 AM EDT Office Visit Internal Medicine - [address] [place] [phone] Keith Yusuf MD [address] [facility] [place] [address] Health Maintenance Due Date Last Done Comments Zoster Vaccines (1 of 2) 1959 RSV Immunization Adult Patients (1 - 1-dose 75+ series) 2017 COVID-19 Vaccine (3 - Moderna risk series) 05/30/2020 05/02/2020, 04/05/2020 Cholesterol Screening (Lipid Panel) 01/23/2022 Depression Screening 01/23/2022 Falls Risk Assessment 01/23/2022 Medicare Annual Wellness Visit 01/23/2022 Social Influencers of Health Screening 01/23/2022 Hypertension/CHF/CAD Annual BMP Blood Test 01/30/2022 Influenza Vaccine (Season Ended) 2024 11/19/2021, 11/21/2019, 11/09/2017, Additional history exists DTaP,Tdap,and Td Vaccines (5 - Td or Tdap) 03/03/2025 03/03/2015, 12/11/2009, 12/04/2009, Additional history exists Pneumococcal Vaccine: 50+ Years Completed 07/04/2017, 03/03/2015, 07/10/2007, Additional history exists HIB Vaccines Aged Out No longer eligi ble based on patient's age to complete this topic HPV Vaccines Aged Out No longer eligi ble based on patient's age to complete this topic Hepatitis A Vaccines Aged Out No long er eligible based on patient's age to complete this topic Hepatitis B Vaccines Aged Out No long er eligible based on patient's age to complete this topic IPV Vaccines Aged Out No longer eligi ble based on patient's age to complete this topic MMR Vaccines Aged Out No longer eligi ble based on patient's age to complete this topic Meningococcal ACWY Vaccine Aged Out N o longer eligible based on patient's age to complete this topic Meningococcal B Vaccine Aged Out No l onger eligible based on patient's age to complete this topic RSV Immunization Patients Under 20 months Aged Out No longer eligible based on patient's age to complete this topic Varicella Vaccines Aged Out No longer eligible based on patient's age to complete this topic Insurance MEDICARE Care Teams Civil Engineering Designer Relationship Specialty Start Date End Date Keith Yusuf MD PCP - General Internal Medicine 01/28/21
--- OUTSIDE RECORDS SUMMARY | 2024-07-08 15:07 | XMS_ITS | Clinical Summary ---
Author Organization [facility] Address [address] [place] [address] Care Team Providers Care Home Supervisor Name Role Phone Unavailable Primary Care Provider [...] 0 01/07/2020 Active ergocalciferol (VITAMIN D2) capsule 92244 units ergocalciferol (vitamin D2) 1,250 mcg (50,000 [...]
[2024-07-08 16:31] LABS: Erythrocyte Sedimentation Rate 20 MM/HR (0-15)
[2024-07-08 17:06] LABS: Alanine Aminotransferase 20 U/L (0-40); Anion Gap 13 (12-20); Aspartate Amino Transferase 22 U/L (5-37); Bilirubin Total 0.8 mg/dL (0.0-1.0); Blood Urea Nitrogen 22 mg/dL (9-16); C Reactive Protein 0.12 mg/dL (< or = 0.50); Calcium 9.4 mg/dL (8.4-10.2); Carbon Dioxide 27 mmol/L (22-29); Chloride 106 mmol/L (96-108); Estimated Glomerular Filt Rate > 60; Glucose Random 128 mg/dL (60-115); Potassium 4.2 mmol/L (3.3-5.1); Sodium 142 mmol/L (135-145); Total Protein 7.1 g/dL (6.5-8.0)
[2024-07-08 17:19] LABS: Alkaline Phosphatase 130 U/L (39-117)
== END 2024-07-08 15:04 | disposition home or self-care (01) ==
LOC: HO.LAB 15:03
PROVIDERS: PCP Internal Medicine; Visit Provider Student in an Organized Health Care Education/Training Program
DX: M81.0 Age-related osteoporosis without current pathological fracture (principal); Z79.52 Long term (current) use of systemic steroids
CPT/HCPCS: 36415; 80053; 85652; 86140

== ENCOUNTER → 2024-07-22 23:59 | Outpatient (BNV) | payer MEDICARE, OTHER, SELFPAY ==
--- NOTE | 2024-07-23 13:20 | A.OFFVIS_ITS ---
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 Long-term current use of high risk medication other than anticoagulant COVID-19 vaccine series completed Arthritis Gout Polymyalgia rheumatica Elevated cholesterol LBBB (left bundle branch block) Biventricular ICD (implantable cardioverter-defibrillator) in place Cardiomyopathy CAD (coronary artery disease) Surgical History H/O colonoscopy Stented coronary artery Family History Father CVD (cardiovascular disease) Heart attack Mother Cancer Maternal Grandfather Heart attack Social History Household Members: Spouse Are you a primary home health care social worker to a significant other at home: No Do you presently have visiting nurse or other home services: No Alcohol intake: current Alcohol intake frequency: a few times a month Patient Tobacco Use Status: Never used Tobacco Office Procedures Cardiac Device Check Cardiac Device Check Details: Remote ICD report generated 07/22/2024. ICD function is adequate. Bi V pacing 94% of the time [id number] Cardiac Interrogation, implant defibrillator w/interim Procedure code (CPT) selection complete Assessment & Plan Assessment & Plan (1) Biventricular ICD (implantable cardioverter-defibrillator) in place: Comment: [facility] 2015 Code(s): Z95.810 - Presence of automatic (implantable) cardiac defibrillator Category: Medical Plan: See above Coding Level of Care Code Procedure Only Diagnoses Biventricular ICD (implantable cardioverter-defibrillator) in place Z95.810 CPT Codes Cardiac Device Check - Cardiac Device 13: [id number] Cardiac Interrogation, implant defibrillator w/interim ([id number])
== END ==
PROVIDERS: PCP Internal Medicine; Visit Provider Internal Medicine Cardiovascular Disease
DX: Z45.02 Encounter for adjustment and management of automatic implantable cardiac defibrillator (principal)
CPT/HCPCS: 93295

== ENCOUNTER → 2024-10-21 23:59 | Outpatient (BNV) | payer MEDICARE, OTHER, SELFPAY ==
--- NOTE | 2024-10-23 14:55 | MHC.OFFVIS ---
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 Long-term current use of high risk medication other than anticoagulant COVID-19 vaccine series completed Arthritis Gout Polymyalgia rheumatica Elevated cholesterol LBBB (left bundle branch block) Biventricular ICD (implantable cardioverter-defibrillator) in place Cardiomyopathy CAD (coronary artery disease) Surgical History H/O colonoscopy Stented coronary artery Family History Father CVD (cardiovascular disease) Heart attack Mother Cancer Maternal Grandfather Heart attack Social History Household Members: Spouse Are you a primary wound care coordinator to a significant other at home: No Do you presently have visiting nurse or other home services: No Alcohol intake: current Alcohol intake frequency: a few times a month Patient Tobacco Use Status: Never used Tobacco Office Procedures Cardiac Device Check Cardiac Device Check Details: Remote ICD report generated 10/21/2024. ICD function is adequate. Bi V pacing 95% of the time [id number] Cardiac Interrogation, implant defibrillator w/interim Procedure code (CPT) selection complete Assessment & Plan Assessment & Plan (1) Biventricular ICD (implantable cardioverter-defibrillator) in place: Comment: [facility] 2015 Code(s): Z95.810 - Presence of automatic (implantable) cardiac defibrillator Category: Medical Plan: See above Coding Level of Care Code Procedure Only Diagnoses Biventricular ICD (implantable cardioverter-defibrillator) in place Z95.810 CPT Codes Cardiac Device Check - Cardiac Device 13: [id number] Cardiac Interrogation, implant defibrillator w/interim ([id number])
== END ==
PROVIDERS: PCP Internal Medicine; Visit Provider Internal Medicine Cardiovascular Disease
DX: Z45.02 Encounter for adjustment and management of automatic implantable cardiac defibrillator (principal)
CPT/HCPCS: 93295

== ENCOUNTER 2024-11-05 09:10 | Outpatient (AMB) | payer MEDICARE, OTHER, SELFPAY ==
[2024-11-05 09:12] VITALS: BP 130/70; PULSE 68; BMI 23.1
--- NOTE | 2024-11-05 09:12 | MHC.OFFVIS ---
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 Has been having issues with balance. He is currently still walking and trying to maintain a but when he goes for a longer walk he start stumbling. He is to undergo PT evaluation tomorrow for fall prevention. He has not had any significant cardiac symptoms. No significant lightheadedness, syncope. No prolonged palpitation irregular heartbeat. No exertional chest pain. Denies any orthopnea, PND, leg edema. Taking all his medications. 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 Long-term current use of high risk medication other than anticoagulant COVID-19 vaccine series completed Arthritis Gout Polymyalgia rheumatica Elevated cholesterol LBBB (left bundle branch block) Biventricular ICD (implantable cardioverter-defibrillator) in place Cardiomyopathy CAD (coronary artery disease) Surgical History H/O colonoscopy Stented coronary artery Family History Father CVD (cardiovascular disease) Heart attack Mother Cancer Maternal Grandfather Heart attack Social History Household Members: Spouse Are you a primary district manager primary care sales to a significant other at home: No Do you presently have visiting nurse or other home services: No Alcohol intake: current Alcohol intake frequency: a few times a month Patient Tobacco Use Status: Never used Tobacco Review of Systems Const Denies chills, Denies fatigue, Denies fever(s), Denies frequent falls, Denies weakness, Denies weight gain and Denies weight loss ENT Denies dizziness Card Denies chest pain, Denies leg edema, Denies lightheadedness, Denies palpitations, Denies dyspnea, Denies dyspnea on exertion, Denies orthopnea and Denies other (loss of consciousness) Resp Denies cough, Denies dyspnea and Denies dyspnea on exertion GI Denies hematochezia and Denies change in stool character Musc Denies abnormal gait, Denies muscle weakness, Denies numbness, Denies radiating pain into limb and Denies tingling Neuro Denies abnormal gait, Denies dizziness, Denies frequent falls, Denies numbness, Denies tingling and Denies weakness Endo Denies fatigue and Denies palpitations Physical Exam Vital Signs: Last Vital Signs Pulse 68 11/05/24 09:12 BP 130/70 11/05/24 09:12 BMI result Body Mass Index 23.1 Const General: cooperative, comfortable, no acute distress, alert, awake and well groomed Nutritional Appearance: thin and other (Frail) Orientation/consciousness: patient oriented x3 Limitations: no limitations Neck Neck: Yes trachea midline, Yes supple and Yes no JVD Resp Effort & Inspection: normal respiratory effort Auscultation: clear to auscultation bilaterally Cardio Jugular venous distension: no JVD Palpation: normal PMI Rate: regular rate Rhythm: regular rhythm Heart sounds: S1 normal heart sound present and S2 normal heart sound present GI Auscultation: normal bowel sounds Skin General skin exam: no rashes or lesions noted Neuro General: patient oriented x3 and no focal motor deficits Extrem General: Yes no clubbing, cyanosis or edema Psych Appearance: grossly normal Office Procedures Cardiac Device Check Cardiac Device Check Details: Biventricular [facility] ICD in place. Programmed in DDDR at 60 beats per minute. Biventricular pacing 95% of time. Frequent PVCs noted. One episode of nonsustained VT noted. Atrial and biventricular capture thresholds adequate and in auto capture mode. Atrial sensing is excellent. Pacing and shock lead impedance is stable. Battery life is at 3.3 years [id number] Cardiac Device Check, multi lead implantable defibrillator Procedure code (CPT) selection complete Assessment & Plan Assessment & Plan (1) CAD (coronary artery disease): Comment: Hx of CAD with LAD stent. Code(s): I25.10 - Atherosclerotic heart disease of [place] coronary artery without angina pectoris Category: Medical Plan: CAD with prior LAD stenting with no symptoms of angina. His symptoms of fatigue and more likely related to musculoskeletal deconditioning. He is otherwise doing well. Continue high-intensity statin therapy. Continue low-dose aspirin therapy for life. Continue aggressive blood pressure control which is currently well optimized. Target goal LDL less than 70 mg/dL. (2) Cardiomyopathy: Comment: nonischemic Code(s): I42.9 - Cardiomyopathy, unspecified Category: Medical Plan: Cardiomyopathy with both ischemic and nonischemic component. Status post biventricular ICD in place working well although has suboptimal Bi V pacing due to PVCs. Continue metoprolol therapy. Continue both metoprolol and lisinopril for neurohormonal modulation. No signs or symptoms of heart failure. They were discussed with him. Advised to call me with any worsening symptoms. Follow-up echocardiogram in 6 months time. (3) Biventricular ICD (implantable cardioverter-defibrillator) in place: Comment: [facility] 2015 Code(s): Z95.810 - Presence of automatic (implantable) cardiac defibrillator Category: Medical Plan: Biventricular ICD in place for severe LV systolic dysfunction as well as left bundle-branch block. Has done well with no hospitalizations for heart failure and many years and LV ejection fraction is remained stable at about 40-45%. Continue monitor remotely by telemetry. Will follow up in the clinic in 6 months time, sooner p.r.n.. Thank you for allowing me to partake in his care Medications: Changed From prednisone 2 mg (2 x 1 mg) PO DAILY 180 tabs 1RF M35.3 - Polymyalgia rheumatica To prednisone 1 mg PO DAILY M35.3 - Polymyalgia rheumatica Coding Level of Care Code Est Pt Level 4 (86296) Complex EM visit Add On G2211 Diagnoses CAD (coronary artery disease) I25.10 Cardiomyopathy I42.9 Biventricular ICD (implantable cardioverter-defibrillator) in place Z95.810 CPT Codes Cardiac Device Check - Cardiac Device 6: [id number] Cardiac Device Check, multi lead implantable defibrillator ([id number])
--- OUTSIDE RECORDS SUMMARY | 2024-11-05 11:28 | XMS_ITS | Patient Health Record ---
Author Organization [facility] Address [address] [place] [address] Care Team Providers Care Peanut Blancher Name Role Phone Capri Morris DO Primary Care Provider Moy Martínez Unavailable [phone] Allergies Allergen (clinical drug ingredient) Drug/Non Drug Allergy documented on EMR Reaction Allergy Type Onset Date Status bee stings (uncoded) Unknown Allergy Active Reason For Referral No Information Medications Medication SIG (Take, Route, Frequency, Duration) Notes Start Date End Date Status Clopidogrel Bisulfate 75 MG 1 tablet Orally Once a day Active Atorvastatin Calcium 80 MG 1 tablet Orally Once a day Active Allopurinol 100 MG 1 tablet Orally Once a day Active Lisinopril 10 MG Orally Act ariel Metoprolol Tartrate 100 MG 1 tablet with food Orally Twice a day Active predniSONE 5 MG 1 tablet Orally Once a day Active Aspirin 81 MG 1 tablet Orally Once a day Active Indomethacin 25 MG 1 capsule with food or milk Orally Twice a day Uses only rarely Active Immunizations Vaccine Route Administration Date Status Comme nts Influenza Unknown 03/08/2016 Administered Problems Problem Type SNOMED Code ICD Code Onset Dates Problem Status W/U Status Risk Notes Problem 658325921 Encounter for screening for malignant neoplasm of colon (Z12.11) Active confirmed Problem Screening for malignant neoplasm of rectum (217008509) Encounter for screening for malignant neoplasm of rectum (Z12.12) Active confirmed Problem 717086945 History of colon polyps (Z86.010) Active confirmed Problem 399619441 Long-term use of aspirin therapy (Z79.82) Active confirmed Plan Of Treatment Pending Test Test Name Order Date GI BIOPSY 07/04/2016 Future Test Test Name Order Date COLONOSCOPY 05/10/2016 Insurance Providers Payer Name Payer Address Payer Phone Subscriber Number Group Number Insured Name Patient Relationship to Insured Coverage Start Date Coverage End Date MEDICARE OF [place] [address] [place] [address] [id number] SHIRLEYREJIBARBARA IRBY Self - patient is the insured [facility] IN[facility]MN[facility] [address] [place] [address] [id number] BARBARA JERNIGAN Self - patient is the insured Medical (General) History Medical History History ICD Code Cardiac defibrillator/Pacema ker--coronary artery stent--Dr. Crawford--approx. 2013 Denies SC,DM,CVA,Lung disease,renal dise ase 2 colonoscopies at [facility] --1 was 2001 with polyps and 1 was negative in 2006--with Dr. 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
--- OUTSIDE RECORDS SUMMARY | 2024-11-05 11:28 | XMS_ITS ---
Author Name [facility] Organization Unknown Care Team Organization Name Specialty Phone Email Start Date End Da te [facility]CO 10/09/2024 [facility] Keith Yusuf Primary Care 06/27/20222023 [facility] Wilman Mesa Primary Care 12/28/2021 10/09/2023
--- OUTSIDE RECORDS SUMMARY | 2024-11-05 11:29 | XMS_ITS | Encounter Summary ---
Author Organization [facility] Address [address] [place] [address] Care Team Providers Care Clinical Science Liaison Name Role Phone Keith Yusuf MD Primary Care Provider [phone] Reason for Visit * Reason Onset Date Comments Referral 10/25/2024 Encounter Details Date Type Department Care Team (Late st Contact Info) Description 10/25/2024 Telephone Internal Medicine - [facility] [address] [place] [address] Keith Yusuf MD [address] [place] [address] Social History Tobacco Use Types Packs/Day Years Used Date Smoking Tobacco: Never Smokeless Tobacco: Never Alcohol Use Standard Drinks/Week Comments Yes 0 (1 standard drink = 0.6 oz pur e alcohol) Housing Instability Answer Date Recorde d Are you worried that in the next 2 months you may not have stable housing? No 07/11/2024 Food Access & Nutrition Answer Date Rec orded Do you have access to a vari ety of food including fruits and vegetables? Yes 07/11/2024 Health Literacy Answer Date Recorded How often do you need to hav e someone help you when you read instructions, pamphlets, or other written material from your doctor or pharmacy? Never 07/11/2024 Caregiver: How often do you need to have someone help you when you read instructions, pamphlets, or other written material from your doctor or pharmacy? Not on file 07/11/2024 Financial Risk Answer Date Recorded How hard is it for you to pa y for the very basics like food, housing, medical care, and air conditioning / heating? Not very hard 07/11/2024 Transportation Answer Date Recorded Has the lack of transportati on kept you from meetings, work, or from getting things needed for daily living? No Has the lack of transportati on kept you from medical appointments or from getting medications? No 07/11/2024 Social Isolation Answer Date Recorded How often do you feel lonely or isolated from th ose around you? Never 07/11/2024 Food Risk Answer Date Recorded Within the past 12 months we worried whether our food would run out before we got money to buy more. Never true 07/11/2024 Within the past 12 months th e food we bought just didn't last and we didn't have money to get more. Never true 07/11/2024 Dependent Care Answer Date Recorded Do you need help finding or paying for care for your loved ones. For example, child development instructor or elderly care for an older adult? No 07/11/2024 Education Answer Date Recorded Do you think completing more education or training, like finishing a GED, going to college, or learning a trade, would be helpful for you? No 07/11/2024 Employment and Income Answer Date Recor ded During the last four weeks, have you been actively looking for work? No 07/11/2024 Living Situation Answer Date Recorded What is your living situation? 0 07/11/2024 Sex and Gender Information Value Date Recorded Sex Assigned at Not on file Legal Sex Male 12:51 AM EST Gender Identity Not on file Sexual Orientation Not on file documented as of this encounter Progress Notes * Gloria Ray - 10/25/2024 10:05 AM EDT Ok ill contact pt to book an appt. * Adeline Frye MA - 10/25/2024 10:01 AM EDT [place] 06/23/23 Needs appt * Gloria Ray - 10/25/2024 9:53 AM EDT Referral Request: What insurance does the patient have today? a&b Referrals cannot be processed if the insurance is not accurate. If the insurance listed above in red is NO BILLING INFORMATION FOUND FOR THIS ENCOUTNER The patients correct insurance must be obtained and registered in [facility] or their referral can not be processed. Who is calling to request this referral? pt If the caller is not the patient, what is their name? not applicable Ask the patient WHO referred them to this specialty: Patient saw Dr. Yusuf at [facility] for the problem and was told if symptoms did not resolve or worsen they would refer them to this specialty FIRST and LAST NAME of SPECIALIST PATIENT is seeing: unknown What specialty is this? orthopedics DIAGNOSIS Patient is being seen for (Not a body part or a procedure): knee replacement/balance issues Have you seen this SPECIALIST for this PROBLEM/DX before? If YES, when? Yes. 2022 Have you checked REVIEW or the APPT DESK to see if this referral has already been done or has visits left? yes Is this visit: Follow Up Address of Specialist: [address] [place] [address] Phone # of Specialist: [phone] Fax #: (if applicable): unknown Does patient have an appointment scheduled?: yes Date of appointment- (including a retro-request): 11/13/24 Is this appointment related to: no documented in this encounter Plan of Treatment Upcoming Encounters Date Type Department Care Team (Late st Contact Info) Description 11/12/2024 2:00 PM EDT Office Visit Internal Medicine - [facility] [address] [place] [address] Augustine Mathur PA [address] [place] [address] documented as of this encounter Visit Diagnoses Not on filedocumented in this encounter Additional Health Concerns Assessment Noted Time PHQ-9 Depression Total Score: 0 07/12/19 9:58 AM EDT documented as of this encounter Care Teams Clinical Science Liaison Relationship Specialty Start Date End Date Keith Yusuf MD [address] [place] [address] PCP - General Internal Medicine 10/25/24 documented as of this encounter
--- OUTSIDE RECORDS SUMMARY | 2024-11-05 11:29 | XMS_ITS | Clinical Summary ---
Author Organization [address] [place] [address] Address [address] [place] [phone] Phone Care Team Providers Care Field Interviewer Name Role Phone Keith Yusuf MD Primary Care Provider [phone] Allergies Active Allergy Reactions Criticality Noted Date Comments Bee Pollens Hives,Nausea And Vomiting Encounters Date Type Department Care Team Description 10/25/2024 Telephone Internal Medicine - [address] [phone] Keith Yusuf MD from Last 3 Months Surgical History Surgery [...] knee 04/18/2012 DX:Osteoart hritis, knee Polymyalgia rheumatica (CMS/HCC V24) 04/24/2012 DX:Polymyalgia rheumatica (HCC); COMMENT: Onset - February 2012; ESR 59, [...] good health ( defect) Father (Age 49) [place] Maternal Grandfather unknown Maternal Grandmother (Age 90's) [...] for your loved ones. For example, child care specialist or elderly care for an older adult? [...] PM EDT Office Visit Internal Medicine - [facility] [address] [facility] [place] [place] [phone] Augustine Mathur PA [address] [place] [address] Health Maintenance Due Date Last Done Comments Zoster Vaccines (1 of 2) 1992 RSV Immunization Adult Patients (1 - 1-dose 75+ series) 2017 Cholesterol Screening (Lipid Panel) 01/23/2022 Hypertension/CHF/CAD Annual BMP Blood Test 01/30/2022 COVID-19 Vaccine (3 - 2024- season) 2024 05/02/2020, 04/05/2020 Influenza Vaccine (#1) 2024 , 11/21/2019, 11/09/2017, Additional history exists DTaP,Tdap,and Td Vaccines (4 - Td or Tdap) 03/03/2025 03/03/2015, 12/11/2009, 12/04/2009 Falls Risk Assessment 07/11/2025 07/11/2024 Medicare Annual Wellness Visit 07/11/2025 07/11/2024 Social Influencers of Health Screening 07/11/2025 07/11/2024 Pneumococcal Vaccine: 50+ Years Completed 07/04/2017, 03/03/2015, 07/10/2007, Additional history exists Depression Screening Completed 07/11/2024 HIB Vaccines Aged Out No longer eligi [...] complete this topic Insurance MEDICARE Care Teams Field Interviewer Relationship Specialty Start Date End Date Keith Yusuf MD [address] [place] [id number] PCP - General Internal Medicine 10/25/24
== END 2024-11-05 09:41 | disposition home or self-care (01) ==
PROVIDERS: PCP Internal Medicine; Visit Provider Internal Medicine Cardiovascular Disease
DX: I25.10 Atherosclerotic heart disease of native coronary artery without angina pectoris (principal); I42.9 Cardiomyopathy, unspecified; Z95.810 Presence of automatic (implantable) cardiac defibrillator
CPT/HCPCS: 93284; 99214; G2211

== ENCOUNTER → 2024-11-05 09:10 | Outpatient (BNVA) | payer MEDICARE, OTHER, SELFPAY | PROVIDERS: PCP Internal Medicine; Visit Provider Internal Medicine Cardiovascular Disease | DX: Z45.02 Encounter for adjustment and management of automatic implantable cardiac defibrillator (principal); I25.10 Atherosclerotic heart disease of native coronary artery without angina pectoris; I42.9 Cardiomyopathy, unspecified; Z95.810 Presence of automatic (implantable) cardiac defibrillator | CPT/HCPCS: 93284; 99212 ==

== ENCOUNTER 2024-11-22 08:35 | Outpatient (AMB) | payer MEDICARE, OTHER, SELFPAY ==
--- NOTE | 2024-11-22 08:39 | MHC.OFFVIS ---
Vital Signs 11/22/24 08:46 Height 5 ft 10 in Weight 164 lb 0.383 oz BMI 23.5 BP 120/74 Blood Pressure Location Lt brachial Position Sitting Pulse 74 Pulse Source Pulse Oximeter Pulse Oximetry (%) 98 Oxygen Delivery Method Room Air Intake Visit Reasons: follow up Intake Note: Patient presents for PMR/Gout follow up. 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 No history of recurrent falls or fractures - No gout flares - Prednisone reduced to 1mg Today - On Allopurinol 200mg daily and prednisone 1mg daily - Doing well, no gout flares or return of PMR symptoms Rheumatologic History: PMR. Diagnosed at age 72. Has been on on chronic prednisone since then Gout. 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) use of systemic steroids Long-term current use of high risk medication other than anticoagulant COVID-19 vaccine series completed Arthritis Gout Polymyalgia rheumatica Elevated cholesterol LBBB (left bundle branch block) Biventricular ICD (implantable cardioverter-defibrillator) in place Cardiomyopathy CAD (coronary artery disease) Surgical History H/O colonoscopy Stented coronary artery Family History Father CVD (cardiovascular disease) Heart attack Mother Cancer Maternal Grandfather Heart attack Social History Household Members: Spouse Are you a primary career development associate to a significant other at home: No Do you presently have visiting nurse or other home services: No Alcohol intake: current Alcohol intake frequency: a few times a month Patient Tobacco Use Status: Never used Tobacco Review of Systems Const Details: Review of Systems Constitutional: Denies fever, chills, weight loss ENT: Denies vision changes, eye pain or eye redness, dental caries, dry mouth GI: Denies nausea, vomiting, diarrhea, abdominal pain, change in BM Pulm: Denies SOB, THOMPSON, hemoptysis, wheezing Cards: Denies chest pain, palpitations Skin: Denies Raynaud's, rash, nail changes, photosensitivity, [employer] 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 Well appearing and in no apparent painful distress MSK Hands Right Hand: Able to make a fist. No swelling or tenderness to palpation of the MCPs, PIPs or DIPs. Left Hand: Able to make a fist. No swelling or tenderness to palpation of the MCPs, PIPs or DIPs. Herbedens nodes noted bilaterally Wrists Right Wrist: Full ROM to flexion and extension. No swelling or TTP Left Wrist: Full ROM to flexion and extension. No swelling or TTP Elbows Right Elbow: Full ROM. No swelling or TTP. No TTP of the medial epicondyle. No TTP of the lateral epicondyle Left Elbow: Full ROM. No swelling or TTP. No TTP of the medial epicondyle. No TTP of the lateral epicondyle Shoulders Right shoulder: Decreased ROM. No swelling noted. No TTP of the AC joint. No TTP of the subacromial bursa. No TTP of the posterior shoulder Left shoulder: Decreased ROM. No swelling noted. No TTP of the AC joint. No TTP of the subacromial bursa. No TTP of the posterior shoulder Knees Right knee: Decreased ROM. No swelling noted. No TTP of the knee joint line. No TTP of pes anserine bursa Left knee: Decreased ROM. No swelling noted. No TTP of the knee joint line. No TTP of pes anserine bursa. Ankles Right ankle: Good ankle dorsiflexion and plantar flexion. No swelling. No TTP of the ankle joint Left ankle: Good ankle dorsiflexion and plantar flexion. No swelling. No TTP of the ankle joint Feet Right foot: Negative squeeze test Left foot: Negative squeeze test Tender points? No tenderness to palpation of the bilateral trapezius, supraspinatus, anterior costochondral junctions, bilateral suboccipital muscle insertions SKIN No rashes Results Reviewed Results Reviewed: Laboratory Tests 01/04/24 07/08/24 10:03 15:32 ESR 20 H Sodium 142 Potassium 4.2 Chloride 106 Carbon Dioxide 27 BUN 22 H Creatinine 1.14 Uric Acid 6.0 AST 22 ALT 20 C-Reactive Protein 0.12 Assessment & Plan Assessment & Plan (1) Polymyalgia rheumatica: Comment: Diagnosed age 72s Prednisone monotherapy Code(s): M35.3 - Polymyalgia rheumatica Category: Medical Plan: #PMR Patient is a 84 year old male with PMR here today for follow up. Ideally would not have had him on prednisone for 10 years. Based on the guidelines he should have been transitioned to either methotrexate or tocilizumab given his inability to taper off the prednisone. However at this time given his age I will not pursue DMARD therapy. Prednisone taper is going well. Will now alternate with 1 mg every other day. No signs or symptoms concerning for GCA at this time. Plan - Prednisone 1mg every other day - Labs today: CMP, Uric Acid, CBC, ESR and CRP - RTC 6 months (2) Gout: Comment: Non crystal proven on allopurinol Code(s): M10.9 - Gout, unspecified Category: Medical Qualifiers: Gout site: multiple sites Gout etiology: idiopathic Chronicity: chronic Presence of tophus: without tophus Qualified Code(s): M1A.09X0 - Idiopathic chronic gout, multiple sites, without tophus (tophi) Plan: #Non crystal proven gout No gout flares since last visit. Maintain on allopurinol therapy. (3) nursing home (current) use of systemic steroids: Code(s): Z79.52 - intermediate manager (current) use of systemic steroids Category: Medical Plan: #Long-term Use of Steroids Discussed with patient the risks and benefits of steroid for managing the rheumatic condition Benefits include: - Reduced pain, improved mobility, increased participation in activities, and decreased progression of disease Risks include: - GI upset, potential ultrasound worsening or formation (especially in patients > 65 years old), elevated blood pressure/worsening hypertension, elevated blood sugar/worsening diabetes control, worsening of bone density, elevated lipids/worsening triglycerides, cataract formation, weight gain Recommended using proton pump inhibitors (PPIs) for the duration of steroid use to reduce the risk of gastric ulcers and vitamin-D daily to reduce the risk of osteoporosis Labs checked: ?A1c, T spot, hepatitis-B and C serologies Pneumocystis jiroveci prophylaxis: ?Patient with risk factors including steroids greater than 50 mg for more than 30 days, age greater than 60 years, and lung involvement from underlying rheumatic disease requires prophylaxis and will be given so (4) On allopurinol therapy: Code(s): Z79.899 - Other halfway (current) drug therapy Category: Medical Plan: #Long-term Current Use of Allopurinol Risks and benefits of allopurinol discussed with patient Benefits include decreased gout flares, remission of gout and reduction of tophi Risks include allopurinol hypersensitivity syndrome which is a severe cutaneous adverse reaction associated with allopurinol use particularly in patients who are HLA B*5801 positive, increased transaminases, GI upset including diarrhea, nausea and vomiting, and other dermatologic manifestations. Plan I spent 30 minutes reviewing the record and labs, seeing the patient, discussing the treatment plan and documenting in the medical record ? Orders: Orders Comprehensive Met. Panel Today M1A.09X0 - Idiopathic chronic gout, multiple sites, without tophus (tophi), Z79.899 - Other halfway (current) drug therapy C Reactive Protein Today M1A.09X0 - Idiopathic chronic gout, multiple sites, without tophus (tophi), Z79.899 - Other intermediate manager (current) drug therapy Uric Acid Today M1A.09X0 - Idiopathic chronic gout, multiple sites, without tophus (tophi) Complete Blood Count Auto Diff Today M1A.09X0 - Idiopathic chronic gout, multiple sites, without tophus (tophi), Z79.899 - Other halfway (current) drug therapy Erythrocyte Sedimentation Rate Today M1A.09X0 - Idiopathic chronic gout, multiple sites, without tophus (tophi), Z79.899 - Other intermediate manager (current) drug therapy Medications: Changed From prednisone 1 mg PO DAILY M35.3 - Polymyalgia rheumatica To prednisone 1 mg PO Q OTHER DAY 45 tabs 1RF 90 days M35.3 - Polymyalgia rheumatica Coding Level of Care Code Est Pt Level 4 (46277) Complex EM visit Add On G2211 Diagnoses Polymyalgia rheumatica M35.3 Idiopathic chronic gout of multiple sites without tophus M1A.09X0 Gout site: multiple sites Gout etiology: idiopathic Chronicity: chronic Presence of tophus: without tophus intermediate manager (current) use of systemic steroids Z79.52 On allopurinol therapy Z79.899
[2024-11-22 08:46] VITALS: BP 120/74; PULSE 74; O2SAT 98; BMI 23.5
--- OUTSIDE RECORDS SUMMARY | 2024-11-22 08:56 | XMS_ITS | Encounter Summary ---
Author Organization [facility] Address [address] [place] [address] Care Team Providers Care Mechanical Engineering Advisor Name Role Phone Keith Yusuf MD Primary Care Provider [phone] Reason for Visit * Reason Onset Date Comments Referral 10/25/2024 Encounter Details Date Type Department Care Team (Late st Contact Info) Description 10/25/2024 Telephone Internal Medicine - [facility] [address] [place] [id number] Keith Yusuf MD [address] [place] [address] Social History Tobacco Use Types Packs/Day Years [...] your loved ones. For example, child care teacher or elderly care for an older adult? [...] Date Recorded What is your living situation? Unrecognized valu e 07/11/2024 Sex and Gender Information Value Date [...] What insurance does the patient have today? [employer] Referrals cannot be processed if the insurance is not accurate. If the insurance listed above in red is NO BILLING INFORMATION FOUND FOR THIS ENCOUTNER The patients correct insurance must be obtained and registered in [facility] or their referral can not be processed. Who is calling to request this referral? pt If the caller is not the patient, what is their name? not applicable Ask the patient WHO referred them to this specialty: Patient saw Dr. Yusuf at [facility] for the problem and was told if [...] this visit: Follow Up Address of Specialist: [address] [place] [address] Phone # of Specialist: [phone] Fax #: (if applicable): unknown Does patient have an appointment scheduled?: yes Date of appointment- (including a retro-request): 11/13/24 Is this appointment related to: no documented in this encounter Plan of Treatment Not on file documented as of this encounter Visit Diagnoses Not on filedocumented in this encounter Additional Health Concerns Assessment Noted Time PHQ-9 Depression Total Score: 0 07/12/19 9:58 AM EDT documented as of this encounter Care Teams Mechanical Engineering Advisor Relationship Specialty Start Date End Date Keith Yusuf MD [address] [place] [address] PCP - General Internal Medicine 10/25/24 documented as of this encounter
--- OUTSIDE RECORDS SUMMARY | 2024-11-22 08:56 | XMS_ITS | Patient Health Record ---
Author Organization [facility] Address [address] [place] [address] Care Team Providers Care Plant Operations Coordinator Name Role Phone Capri Morris DO Primary Care Provider Moy Martínez Unavailable [phone] Allergies Allergen (clinical drug ingredient) Drug/Non Drug [...] Problem Status W/U Status Risk Notes Problem [id number] Encounter for screening for malignant neoplasm of colon (Z12.11) Active confirmed Problem Screening for malignant neoplasm of rectum ([id number]) Encounter for screening for malignant neoplasm of rectum (Z12.12) Active confirmed Problem [id number] History of colon polyps (Z86.010) Active confirmed Problem [id number] Long-term use of aspirin therapy (Z79.82) Active confirmed Plan Of Treatment Pending Test Test Name Order Date GI BIOPSY 07/04/2016 Future Test Test Name Order Date COLONOSCOPY 05/10/2016 Insurance Providers Payer Name Payer Address Payer Phone Subscriber Number Group Number Insured Name Patient Relationship to Insured Coverage Start Date Coverage End Date MEDICARE OF [place] [address] [place] [address] [id number] [id number] IRBY Self - patient is the insured [facility] [address] [place] [address] [id number] BARBARA JERNIGAN Self - patient is the insured Medical (General) History Medical History History ICD Code Cardiac defibrillator/Pacema ker--coronary artery stent--Dr. Crawford--approx. 2013 Denies [place],DM,CVA,Lung disease,renal dise ase 2 colonoscopies at [place] --1 was 2001 with polyps and 1 was negative in 2006--with Dr. 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
--- OUTSIDE RECORDS SUMMARY | 2024-11-22 08:56 | XMS_ITS | Clinical Summary ---
Author Organization [address] Address [address] [place] [phone] Phone Care Team Providers Care Orthotics Prosthetics Assistant Name Role Phone Keith Yusuf MD Primary Care Provider [phone] Allergies Active Allergy Reactions Criticality Noted Date Comments Bee Pollens Hives,Nausea And Vomiting Bee Venom Protein (Honey Bee) Anaphylaxis High 10/03/2012 Active Problems Problem Noted Date Diagnosed Date CAD (coronary artery disease) 11/12/2024 Dizziness 11/12/2024 Elevated fasting blood sugar 11/12/2024 LBBB (left bundle branch block) 11/12/2024 Arthritis 04/19/2021 ICD (implantable cardioverter-defibrillator) in place 04/19/2021 Abnormal chest x-ray 01/31/2019 Idiopathic chronic gout without tophus 9 Leucocytosis 01/31/2019 Overview (11/12/2024): 02/07- seen by heme/onc- felt to be inflammatory, no further workup recommended Abnormal colonoscopy 07/04/2016 Overview (11/12/2024): 2001Tubular adenoma, 2007, neg, 07/04/2016Tubular adenoma, TIC, Hem Dr Mosley Cardiomyopathy ([facility]/HCC V24, [facility]/HCC V28) 2014 Overview (11/12/2024): EF 35-40%, scheduled for cardiac cath, nonischemic because no improvement in EF post stent of LAD, started on lisinopril 2.[address] Crawford 02/18/14 NSVT (nonsustained ventricul ar tachycardia) ([facility] V24, [facility] V28) 02/21/2014 Overview (11/12/2024): Event monitor with 6 beat run, sees Dr. Crawford Osteoarthritis, knee 04/18/2012 Overview (11/12/2024): LA Moderate severe OA, RT Mild OA, Rt shoulder PMR (polymyalgia rheumatica) ([facility] V24) 02/20 Overview (11/12/2024): Onset ~ February 2012; ESR 59, CRP 2.24 Metabolic syndrome 05/14/2010 Hypertension 12/03/2008 Overview (11/12/2024): Toprol - fatigue Elevated prostate specific antigen (PSA) 007 Overview (11/12/2024): Dr. Miner- no biopsy warranted Chronic ischemic heart disease 06/17/2005 Overview (11/12/2024): 50% LAD by cath- 12/23' Stented LAD 2014 AICD - April 2014 Gout 06/17/2005 Overview (11/12/2024): ~1999. MTP attacks. On allopurinol ~ 2007 Mixed hyperlipidemia 06/17/2005 Overview (11/12/2024): Goal <70 Encounters Date Type Department Care Team Description 10/25/2024 Telephone Internal Medicine - [facility] [address] [place] [id number] Keith Yusuf MD from Last 3 Months Immunizations Immunization Administration Dates Next Due Influenza Quadrivalent, with preservative (Fluzone; Afluria) 6mo and older 11/21/2016 Influenza trivalent, 0.5mL ( Fluad) 65yo and older 11/19/2021,11/21/2019 Influenza trivalent, 0.5mL ( Fluzone High-dose) 65yo and older 11/09/2017 Influenza trivalent, 0.5mL, preservative free (Fluarix; FluLaval; Fluzone) ages 6mo and older (Afluria) 3 years and older 12/17/2014,12/23/2013,01/29/2013,01/04,01/18/2011,12/04/2009 PPD Test 01/23/2003 Pneumococcal conjugate 13 va lent (Prevnar 13, PCV13) 2mo and older 07/04/2017 Pneumococcal polysaccharide 23 valent (Pneumovax 23) 2yo and older 03/03/2015,07/10/2007,07/14/2006 Td Tetanus diptheria (Tdvax) 7yo and older 03/03/2015 Td, Unspecified 12/04/2009 Tdap Tetanus diptheria acell ular pertussis (Boostrix; Adacel) 7yo and older 12/11/2009 Surgical History Surgery Date Site/Laterality Comments TONSILLECTOMY [...] good health ( defect) Father (Age 49) [place] Maternal Grandfather unknown Maternal Grandmother (Age 90's) [...] care for your loved ones. For example, children's counselor or elderly care for an older adult? [...] 06/23/2023 11:15 AM EDT Plan of Treatment Health Maintenance Due Date Last Done Comments Zoster Vaccines (1 of 2) 1992 RSV Immunization Adult Patients (1 - 1-dose 75+ series) 2017 Hypertension/CHF/CAD Annual BMP Blood Test 01/30/2022 COVID-19 Vaccine ( season) 2024 05/02/2020, 04/05/2020 Influenza Vaccine (#1) 2024 2, 11/21/2019, 11/09/2017, Additional history exists DTaP,Tdap,and Td Vaccines (4 - Td or Tdap) 03/03/2025 03/03/2015, 12/11/2009, 12/04/2009 Falls Risk Assessment 07/11/2025 07/11/2024 Medicare Annual Wellness Visit 07/11/2025 07/11/2024 Social Influencers of Health Screening 07/11/2025 07/11/2024 Cholesterol Screening (Lipid Panel) 05/14/2026 05/14/2021 Pneumococcal Vaccine: 50+ Years Completed 07/04/2017, 03/03/2015, [...] on patient's age to complete this topic Procedures Procedure Name Priority Date/Time Associated Diagnosis Comments LIPID PANEL Routine 05/14/2021 from Last 3 Months or Most Recently Relevant to Health Maintenance Results * Lipid panel (05/14/2021) LDL/HDL Ratio 3 Triglycerides 133 mg/dL Cholesterol 90 mg/dL HDL 35 mg/dL LDL Cholesterol 29 mg/dL Blood Venous blood specimen / Unknown us Historical Provider LAB BLOOD ORDERABLES Felicita l Result from Last 3 Months or Most Recently Relevant to Health Maintenance Insurance MEDICARE Care Teams Orthotics Prosthetics Assistant Relationship Specialty Start Date End Date Keith Yusuf MD [address] [place] [id number] PCP - General Internal Medicine 10/25/24
--- OUTSIDE RECORDS SUMMARY | 2024-11-22 08:56 | XMS_ITS | Clinical Summary ---
Author Organization [facility] Address [address] [place] [address] Care Team Providers Care Safety Risk Lead Name Role Phone Unavailable Primary Care Provider [...] 0 01/07/2020 Active ergocalciferol (VITAMIN D2) capsule 03756 units ergocalciferol (vitamin D2) 1,250 mcg (50,000 [...] 84 03/01/2018 9:00 AM EST Temperature 36.8 C (98.2 F) 03/01/2018 9:00 AM EST Respiratory Rate 16 03/01/2018 9:00 AM EST [...] 01/14/2020, 01/14/2020, 11/09/2017 COVID-19 Vaccine ( season) 2024 05/02/2020, 04/05/2020 Influenza Vaccine (#1) 2024 , 11/21/2019, 11/09/2017, Additional history exists DTap [...]
== END 2024-11-22 09:20 | disposition home or self-care (01) ==
LOC: HO.RHES 08:36
PROVIDERS: PCP Internal Medicine; Visit Provider Student in an Organized Health Care Education/Training Program
DX: M35.3 Polymyalgia rheumatica (principal); M1A.09X0 Idiopathic chronic gout, multiple sites, without tophus (tophi); Z79.52 Long term (current) use of systemic steroids; Z79.899 Other long term (current) drug therapy
CPT/HCPCS: 99214; G2211

== ENCOUNTER 2024-11-22 08:35 | Outpatient (REF) | payer MEDICARE, OTHER, SELFPAY ==
[2024-11-22 13:51] LABS: MANUAL DIFF FLAG NO
[2024-11-22 13:59] LABS: Hematocrit 41.5 % (42.0-52.0); Hemoglobin 13.6 g/dl (14.0-18.0); Imm Gran Abs Auto 0.05 X10*3/uL (0.00-0.03); Imm Gran Pct Auto 0.4 % (0.0-0.4); Lymphocytes Absolute Auto 1.9 X10*3/uL (1.2-4.9); Mean Corpuscular HGB Conc 32.8 g/dl (31.0-36.0); Mean Corpuscular Hemoglobin 34.7 pg (27.0-33.0); Mean Corpuscular Volume 105.9 fL (80.0-98.0); NRBC Abs Auto 0.000 X10*3/uL (0.0-0.012); NRBC Pct Auto 0.0 /100WBC (0.0-0.2); Platelet Count 187 X10*3/uL (160-400); Red Blood Count 3.92 X10*6/uL (4.60-5.80); White Blood Count 11.6 X10*3/uL (4.8-10.8)
[2024-11-22 14:36] LABS: Alanine Aminotransferase 18 U/L (0-40); Albumin Level 4.2 g/dL (3.5-5.0); Alkaline Phosphatase 128 U/L (39-117); Anion Gap 12 (12-20); Aspartate Amino Transferase 26 U/L (5-37); Blood Urea Nitrogen 24 mg/dL (9-16); Calcium 9.5 mg/dL (8.4-10.2); Carbon Dioxide 28 mmol/L (22-29); Chloride 106 mmol/L (96-108); Estimated Glomerular Filt Rate > 60; Potassium 4.5 mmol/L (3.3-5.1); Sodium 141 mmol/L (135-145); Total Protein 7.1 g/dL (6.5-8.0); Uric Acid 5.2 mg/dL (3.4-7.0)
== END 2024-11-22 08:36 | disposition home or self-care (01) ==
LOC: HO.HKASLDS 08:35
PROVIDERS: PCP Internal Medicine; Visit Provider Student in an Organized Health Care Education/Training Program
DX: M1A.09X0 Idiopathic chronic gout, multiple sites, without tophus (tophi) (principal); M35.3 Polymyalgia rheumatica; Z79.52 Long term (current) use of systemic steroids; Z79.899 Other long term (current) drug therapy
CPT/HCPCS: 36415; 80053; 84550; 85025; 85652; 86140; 99212

== ENCOUNTER → 2025-02-05 14:56 | Outpatient (BNV) | payer MEDICARE, OTHER, SELFPAY | PROVIDERS: PCP Internal Medicine; Visit Provider Internal Medicine Cardiovascular Disease | DX: Z45.02 Encounter for adjustment and management of automatic implantable cardiac defibrillator (principal) | CPT/HCPCS: 93295 ==